=== PATIENT | male | born 1970 | race Caucasian/White ===

== ENCOUNTER 2016-07-18 17:56 | Inpatient (IN) | payer OTHER ==
[~2016-07-18] VITALS: Ht 190.5 cm; Wt 115.7 kg
[~2016-07-18 17:56] MED LIST: CYCLOBENZAPRINE10 M1 PO; PERCOCET 5-3251 EACH PO; PREDNISONE10 M2 PO
--- NOTE | 2016-07-18 18:15 | NUR ---
LABS DRAWN AND SENT BY THIS MST (BLUE,SST,LAV,LARSEN)
--- NOTE | 2016-07-18 18:18 | NUR ---
PT TO TRIAGE WITH C/O CHEST THIGHTNESS [id number] GETTING WORSE WITH EXERTION, MILD SOB WITH EXERTION, NIGHT SWEATS. BP 200/112 MANUALLY IN TRIAGE. HX OF LYMPHOMA.
[2016-07-18 18:19] LABS: ABSOLUTE BASOPHIL COUNT 0 /CUMM (0.0-0.2); ABSOLUTE EOSINOPHIL COUNT 0.2 /CUMM (0.0-0.7); ABSOLUTE GRANULOCYTE CT 3.1 /CUMM (1.4-6.5); ABSOLUTE LYMPH COUNT 1.3 /CUMM (1.2-3.4); ABSOLUTE MONOCYTE COUNT 0.4 /CUMM (0.10-0.60); BASOPHIL % 0.3 % (0.0-2.0); EOSINOPHIL % 3.2 % (0-5); GRANULOCYTE % 62.4 % (42.2-75.2); MEAN CORPUSCULAR HGB 29.4 PG (27.0-31.0); MEAN CORPUSCULAR HGB CONC 34.3 G/DL (33.0-37.0); MEAN CORPUSCULAR VOLUME 85.7 FL (80.0-94.0); MEAN PLATELET VOLUME 7.2 FL (7.4-10.4); PLATELET COUNT 158 /CUMM (130-400); RBC DISTRIBUTION WIDTH 13.9 % (11.5-14.5); RED BLOOD CELL CT 5.36 /CUMM (4.70-6.10)
[2016-07-18 18:30] LABS: PT 10.5 SEC (9.4-12.5); PTT 32 SEC (25-37)
--- NOTE | 2016-07-18 18:39 | ED CARDIAC/CP/PALPITATIONS ---
History of Present Illness General Chief Complaint: Chest Pain Stated Complaint: CP Source: patient Exam Limitations: no limitations Vital Signs & Intake/Output Vital Signs & Intake/Output Vital Signs Date Time Temp Pulse Resp B/P Pulse O2 O2 Flow FiO2 Ox Delivery Rate 07/180 98.6 74 16 164/94 100 Room Air 07/181 182/90 07/18 2136 89 172/94 07/18 2058 98.3 81 16 174/92 100 Room Air 07/18 1950 192/98 07/18 1915 99 Room Air 07/18 1909 94 202/129 07/18 181 98.0 82 18 200/120 97 Room Air Allergies Coded Allergies: NO KNOWN ALLERGIES (01/31/15) Reconcile Medications Diclofenac Sodium 75 MG TABLET.DR 1 TAB PO BID PAIN/INFLAMMATION (Reported) Naproxen Sodium (Aleve) 220 MG CAPSULE 2 CAP PO QAM PAIN/INFLAMMATION ( Reported) Triage Note: PT TO TRIAGE WITH C/O CHEST THIGHTNESS [id number] GETTING WORSE WITH EXERTION, MILD SOB WITH EXERTION, NIGHT SWEATS. BP 200/112 MANUALLY IN TRIAGE. HX OF LYMPHOMA. Triage Nurses Notes Reviewed? yes Onset: Gradual Duration: worse persistent since (3 weeks) Timing: no prior history Quality/Severity: moderate Location: left sided chest Radiation: no radiation Activities at Onset: none Prior Chest Pain/Card Workup: no prior cardiac workup Nitro Today/Relief: no nitro taken today HPI: Patient is a 46-year-old male with history of knee pain presenting to the emergency department with chief complaint of left-sided chest pain is constant for the past 2-3 weeks. Pain over the chest is worse with exertion. Denies any shortness of breath or palpitations. He reports that he went to a physical couple weeks ago and they told him that his blood pressure was high and he should follow-up with his primary care physician. He brushed it off. He has reports frontal headaches with intermittent blurred vision. Denies any nausea or vomiting. No back pain. Denies any lower extremity edema. 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 He does take Aleve daily for his aches and pains. Denies any urinary frequency or urgency or dysuria. (GUILLERMO GASTELUM) Past History Travel History Traveled to [place] past 21 day No Medical History Any Pertinent Medical History? see below for history Neurological: NONE EENT: NONE Cardiovascular: NONE Respiratory: NONE Gastrointestinal: NONE Hepatic: NONE Renal: NONE Musculoskeletal: NONE Psychiatric: NONE Endocrine: NONE Cancer(s): LYMPHOMA Surgical History Surgical History: N (thyroidectomy, knee surgery, c) Psychosocial History What is your primary language [place] Tobacco Use: Never used ETOH Use: occasional use Illicit Drug Use: denies illicit drug use Family History Hx Contributory? No (GUILLERMO GASTELUM) Review of Systems Review of Systems Constitutional: Reports: malaise. Comments Review of systems: See HPI, All other systems negative. Constitutional, no chills fever or weight loss HEENT: No visual changes no sore throat no congestion Cardiovascular: No palpitation , orthopnea or ankle swelling Skin, no jaundice no rashes Respiratory: No dyspnea cough sputum or hemoptysis GI: No nausea no vomiting : No dysuria No hematuria Muscle skeletal: no neck pain, Neurologic: No numbness no confusion Psych: No stress anxiety Immunology: No splenectomy or history of AIDS (GUILLERMO GASTELUM) Physical Exam Physical Exam General Appearance: well developed/nourished, no apparent distress, alert, awake , comfortable Cardiovascular: regular rate/rhythm Comments: Well-developed well-nourished person in no acute distress HEENT: Normal EENT exam, extraocular motion intact, no nystagmus. Pupils equally round and reactive to light and accommodation. Nose is atraumatic. External auditory canal and Tympanic membranes clear. Pharynx normal. No swelling or edema. Funduscopic: Somewhat limited secondary to no dilation prior to exam. No obvious retinal detachment, unclear if there is any venous nicking. Neck: Supple, no lymphadenopathy, normal range of motion without pain or tenderness Back: Nontender, no CVA tenderness. Full range of motion Cardiovascular: Regular rate and rhythms no murmurs rubs or gallops, normal JVP Respiratory: Chest nontender. No respiratory distress.breath sounds clear to auscultation bilaterally Abdomen: Soft, nontender nondistended, no appreciable organomegaly. Normal bowel sounds. No ascites, no rebound or guarding. Extremity: No edema, no calf tenderness to palpation, normal and equal pulses. Neuro: Alert oriented x3, motor sensory normal, cranial nerves II through XII grossly intact. Cerebellar testing is unremarkable. Skin: No appreciable rash on exposed skin, skin is warm and dry. Old surgical scar noted over the sternum, history of thymectomy. Psych: Mood and affect is normal, memory and judgment is normal. Core Measures ACS in differential dx? Yes Severe Sepsis Present: No Septic Shock Present: No ([place],GUILLERMO) Progress Differential Diagnosis: uncontrolled hypertension, renal artery stenosis, side effects from NSAIDs, ACS, unstable angina, stable angina, intracranial hemorrhage, migraine headache Plan of Care: Orders Procedure Date/time Status Nothing by Mouth 07/19 B Active Saline Lock 07/18 2207 Active Misc Message 07/18 2207 Active ED Holding Orders 07/18 2207 Active Admit to inpatient 07/18 2207 Active Vital Signs 07/18 2207 Active Code Status 07/18 2207 Active Patient Data 07/18 2118 Active Intake & Output 07/18 1915 Active URINALYSIS 07/18 1805 Complete TROPONIN LEVEL 07/18 1805 Complete PARTIAL THROMBOPLASTIN TIME 07/18 1805 Complete PROTHROMBIN TIME 07/18 1805 Complete COMPREHENSIVE METABOLIC PANEL 07/18 1805 Complete CBC WITHOUT DIFFERENTIAL 07/18 1805 Complete EKG 07/18 175 Active Laboratory Tests 07/18/162007: Urine Color YEL, Urine Clarity CLEAR, Urine pH 6.0, Ur Specific Sunbright >= 1.030 , Urine Protein NEG, Urine Ketones NEG, Urine Nitrite NEG, Urine Bilirubin NEG, Urine Urobilinogen 0.2, Ur Leukocyte Esterase NEG, Ur Microscopic EXAM NOT REQUIRED, Urine Hemoglobin NEG, Urine Glucose NEG 07/18/16 1813: Anion Gap 8, Estimated GFR > 60, BUN/Creatinine Ratio 16.7, Glucose 91, Calcium 8.8, Total Bilirubin 0.6, AST 32, ALT 51, Alkaline Phosphatase 91, Troponin I < 0.01, Total Protein 6.3, Albumin 3.7, Globulin 2.6, Albumin/Globulin Ratio 1.4, PT 10.5, INR 1.00, APTT 32, CBC w Diff NO MAN DIFF REQ, RBC 5.36, MCV 85.7, MCH 29.4, RDW 13.9, MPV 7.2 L, Gran % 62.4, Lymphocytes % 25.2, Monocytes % 8.9, Eosinophils % 3.2, Basophils % 0.3, Absolute Granulocytes 3.1, Absolute Lymphocytes 1.3, Absolute Monocytes 0.4, Absolute Eosinophils 0.2, Absolute Basophils 0, PUBS MCHC 34.3 Diagnostic Imaging: Viewed by Me: Radiology Read, CT Scan. Discussed w/RAD: Radiology Read, CT Scan. Radiology Impression: PATIENT: GERARDO THIBODEAUX PRESENT AGE: 46 PATIENT ACCOUNT NO: [id number] : 68 LOCATION: [facility] ORDERING PHYSICIAN: GUILLERMO HILL SERVICE DATE: 07/18/16 EXAM TYPE: RAD - XRY-CHEST XRAY, PA AND LATERAL EXAMINATION: XR CHEST CLINICAL INFORMATION: Chest pain COMPARISON: None TECHNIQUE: 2 views of the chest were obtained. FINDINGS: The x-rays taken with mild rotation toward the left side. The cardiomediastinal silhouette is normal. Median sternotomy wires in place. There is prominence of the right infrahilar bronchovascular markings, can be artifactual due to rotated position of patient on the PA view. The lungs are clear. No pleural effusions. No pneumothorax. IMPRESSION: No acute cardiopulmonary finding. DICTATED BY: ANNA ALFORD MD DATE/TIME DICTATED:10/27 Initial ED EKG: sinus rhythm, 81 beats further, borderline T abnormalities in the inferior leads Prior EKG: unchanged (no previous) Comments: 07/18/2016 7:23:36 PM patient is alert and oriented no focal deficits on exam. Pressure is considered hypertensive urgency. Patient will be medicated with IV labetalol 10 mg initially. Patient will be monitored on the monitor and storage bin tender, CT of the head secondary to headaches, chest x-ray develop cardiomegaly. We will wait for CT of the head before giving aspirin. 07/18/2016 8:25:14 PM patient informed of all laboratory results and imaging study results. Blood pressures trending downward. Patient resting comfortably. 07/18/2016 9:24:22 PM patient will be admitted for hypertensive urgency. Patient does have extensive history of NSAID use which could contribute to hypertension. Spoke with Dr. Morley, he would like to admit the patient to telemetry, we will continue to monitor blood pressure, serial troponins and EKGs. He would like another 10 of IV labetalol given, even with blood pressure trending down at 173/90. Patient feels that the sublingual nitroglycerin did help his pain, but he is still having some mild discomfort over the left chest. (GUILLERMO GASTELUM) Departure Departure Time of Disposition: 2115 Disposition: STILL A PATIENT Condition: Stable Clinical Impression Primary Impression: Hypertensive urgency Secondary Impressions: Chest pain Qualifiers: Chest pain type: unspecified Qualified Code: R07.9 - Chest pain, unspecified Referrals: Latesha PADILLA MD (PCP/Family) Departure Forms: Customer Survey General Discharge Information Admission Note Spoke With: BELLA KEENAN PhD,SISSY Guidry Documentation of Exam: Documentation of any treatments & extenuating circumstances including Concerns Regarding Discharge (functional status, medication knowledge or non-compliance, living conditions, etc.) that warrant an admission rather than observation: Patient requiring IV antihypertensive medication for hypertensive urgency, cardiology consultation, may require stress test, echocardiogram, serial EKGs and troponins, transitioned to by mouth antihypertensive medications, unsafe for discharge at this time due to likelihood of worsening symptoms unless controlled effectively by medications. (GUILLERMO GASTELUM) PA/TAX COMMISSIONER Co-Sign Statement Statement: ED Attending supervision documentation- [] I saw and evaluated the patient. I have also reviewed all the pertinent lab results and diagnostic results. I agree with the findings and the plan of care as documented in the PA's/TAX COMMISSIONER's documentation. [x] I have reviewed the ED Record and agree with the PA's/TAX COMMISSIONER's documentation. [] Additions or exceptions (if any) to the PAs/TAX COMMISSIONER's note and plan are summarized below: [] (MARKEL KEENAN,ISRRAEL Ayala) Critical Care Note Critical Care Note Critical Care Time: 30-74 min (GUILLERMO GASTELUM)
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
[2016-07-18] MEDS ORDERED: DICLOFENAC SODI75 M2 PO (19:27)
[2016-07-18] MEDS ORDERED: ALEVE220 M1 PO (19:28)
--- NOTE | 2016-07-18 19:34 | NUR ---
PT TO CT SCAN, WILL REASSESS BP WHEN PT RETURNS.
--- NOTE | 2016-07-18 19:57 | RADIOLOGY REPORT ---
EXAMINATION: XR CHEST CLINICAL INFORMATION: Chest pain COMPARISON: None TECHNIQUE: 2 views of the chest were obtained. FINDINGS: The x-rays taken with mild rotation toward the left side. The cardiomediastinal silhouette is normal. Median sternotomy wires in place. There is prominence of the right infrahilar bronchovascular markings, can be artifactual due to rotated position of patient on the PA view. The lungs are clear. No pleural effusions. No pneumothorax. IMPRESSION: No acute cardiopulmonary finding.
--- NOTE | 2016-07-18 20:10 | NUR ---
URINE TRIO COLLECTED AND SENT TO LAB
--- NOTE | 2016-07-18 20:11 | CT SCAN REPORT ---
EXAMINATION: CT HEAD WITHOUT CONTRAST CLINICAL INFORMATION: Headaches COMPARISON: None TECHNIQUE: Contiguous axial imaging was performed from the skull base to vertex without intravenous administration of contrast. DLP: 601 mGy-cm FINDINGS: There is no evidence of acute intracranial hemorrhage or territorial infarction. No abnormal mass effect or midline shift is seen. Mcgee to white matter differentiation is well preserved. No extra-axial fluid collections are identified. The ventricles are normal in size. There is no abnormal attenuation within the brain parenchyma. The osseous structures and soft tissues are normal. The mastoid air cells and visualized portions of the paranasal sinuses are well aerated. IMPRESSION: No acute intracranial pathology.
--- NOTE | 2016-07-18 20:59 | NUR ---
MANUAL BP RECHECKED, IMPROVED AFTER NITRO, SEE VITALS FLOW SHEET. PT REPORTING FEELING WELL, DENIES ANY NEEDS OR CONCERNS.
--- NOTE | 2016-07-18 21:21 | NUR ---
PT TO BE ADMITTED, PT AWARE AND AGREEABLE TO POC, ASKING FOR A FEW MOMENTS TO CALL HIS TO TALK TO HER ABOUT IT. WILL MEDICATE WITH LABETOLOL AFTER.
--- NOTE | 2016-07-18 22:37 | History & Physical ---
NATE KEENAN,[facility] 07/18/16 2236: General Information and HPI MD Statement: I have seen and personally examined GERARDO THIBODEAUX and documented this H&P. The patient is a 46 year old M who presented with a patient stated chief complaint of chest pain. Source of Information: patient Exam Limitations: no limitations History of Present Illness: This is a 46-year-old gentleman with medical history of lymphoma at age 28 who presented to the emergency department at [facility] after home blood pressure machine showed evidence of elevated blood pressures. On 07/18/2016 the patient checked his blood pressure with a home monitor and found that his pressures were elevated at 170/100 and 197/116. Following these elevations he came into the emergency department. The patient has also felt that over the last 4 weeks he has felt mild chest pain. Chest pain is rated a 2 out of 10 in severity. Chest pain is not associated with inspiration or physical activity. Patient does occasionally report that his chest pain sometimes worsens with movement. Patient has not taken any medications for this chest pain. Patient denies any fever, chills, nausea, vomiting. Allergies/Medications Allergies: Coded Allergies: NO KNOWN ALLERGIES (01/31/15) Compliance With Home Meds: GOOD Past History Travel History Traveled to [facility] past 21 day No Medical History Neurological: NONE EENT: NONE Cardiovascular: NONE Respiratory: NONE Gastrointestinal: NONE Hepatic: NONE Renal: NONE Musculoskeletal: NONE Psychiatric: NONE Endocrine: NONE Cancer(s): LYMPHOMA Surgical History Surgical History: N (thyroidectomy, knee surgery, c) Past Family/Social History Psychosocial History Where do you live? Home Who Do You Live With? spouse Services at Home: None Primary Language: Sinhala Smoking Status: Never Smoked ETOH Use: occasional use Illicit Drug Use: denies illicit drug use Functional Ability ADLs Independent: dressing, eating, toileting, bathing. Ambulation: independent IADLs Independent: shopping, housework, finances, food prep, telephone, transportation , medication admin. Review of Systems Review of Systems Constitutional: Reports: weakness. Denies: see HPI, chills, diaphoresis, fever. Cardiovascular: Reports: chest pain. Denies: edema, orthopena, palpitations, peripheral edema. Respiratory: Denies: cough, hemoptysis, orthopnea, short of breath. GI: Denies: abdominal pain, bloating, constipation, diarrhea, distention, bowel incontinence. Genitourinary: Denies: discharge, dysuria, frequency, hematuria. Musculoskeletal: Denies: back pain, gout, joint pain, joint swelling. Skin: Denies: cysts, change in hair/nails, erythema, jaundice. Exam & Diagnostic Data Last 24 Hrs of Vital Signs/I&O Vital Signs Date Time Temp Pulse Resp B/P Pulse O2 O2 Flow FiO2 Ox Delivery Rate 07/180 98.6 74 16 164/94 100 Room Air 07/181 182/90 07/18 2136 89 172/94 07/18 2058 98.3 81 16 174/92 100 Room Air 07/18 1950 192/98 07/18 191 99 Room Air 07/18 191 94 202/129 07/18 1813 98.0 82 18 200/120 97 Room Air Intake & Output 07/19 0800 07/19 0000 07/18 1600 Intake Total 50 Output Total Balance 50 Intake, Oral 50 Patient 115.666 kg Weight Physical Exam General Appearance Alert, Oriented X3, Cooperative Lymphatic Cervical nl Cardiovascular Normal S1, Normal S2, No Murmurs, Surgical Scar, Anteior Chest Lungs Clear to Auscultation Abdomen Normal Bowel Sounds, Soft, No Tenderness Neurological Normal Gait, Normal Speech, Strength at 5/5 X4 Ext Extremities No Clubbing, No Cyanosis, No Edema Last 24 Hrs of Labs/Darrell: Laboratory Tests 07/18/162007: Urine Color YEL, Urine Clarity CLEAR, Urine pH 6.0, Ur Specific [place] >= 1.030 , Urine Protein NEG, Urine Ketones NEG, Urine Nitrite NEG, Urine Bilirubin NEG, Urine Urobilinogen 0.2, Ur Leukocyte Esterase NEG, Ur Microscopic EXAM NOT REQUIRED, Urine Hemoglobin NEG, Urine Glucose NEG 07/18/161812: Anion Gap 8, Estimated GFR > 60, BUN/Creatinine Ratio 16.7, Glucose 91, Calcium 8.8, Total Bilirubin 0.6, AST 32, ALT 51, Alkaline Phosphatase 91, Troponin I < 0.01, Total Protein 6.3, Albumin 3.7, Globulin 2.6, Albumin/Globulin Ratio 1.4, PT 10.5, INR 1.00, APTT 32, CBC w Diff NO MAN DIFF REQ, RBC 5.36, MCV 85.7, MCH 29.4, RDW 13.9, MPV 7.2 L, Gran % 62.4, Lymphocytes % 25.2, Monocytes % 8.9, Eosinophils % 3.2, Basophils % 0.3, Absolute Granulocytes 3.1, Absolute Lymphocytes 1.3, Absolute Monocytes 0.4, Absolute Eosinophils 0.2, Absolute Basophils 0, PUBS MCHC 34.3 Assessment/Plan Assessment: This is a 46-year-old gentleman with limited past medical history who presented to the emergency department with worsening hypertension and chest pain. Hypertension likely caused by multifactorial including lifestyle and/or OTC medications. #Hypertensive urgency. No evidence of any end organ damage. Continue to monitor patient's pressures and ensure that rapid correction does not occur. Target blood pressure of 150/90 systolic. Admit to telemetry for close observation Consider starting patient on by mouth labetalol 100 mg by mouth daily Consider renal ultrasound to assess the renal parenchyma Measure plasma renin and aldosterone ratio, Renal Dopplex ultrasound : To assess for renal artery stenosis Free T4, TSH #Chest Pain Patient's chest pain is very atypical, likely related to hypertension. This patient has limited risk factors for coronary artery disease. Check lipid profile Hemoglobin A1c Started patient on aspirin 81 mg by mouth daily NTG 0.4 mg SL TID/Patch as needed for chest pain if Blood pressure tolerated Obtain transthoracic echo #History of lymphoma CTA findings show evidence of questionable malignancy. Patient will need follow-up as an outpatient. May need inpatient referral with oncology. #DVT prophylaxis Heparin 5000 #Code Full code As Ranked By This Provider Problem List: 1. Chest pain Qualifiers Chest pain type: unspecified Qualified Code: R07.9 - Chest pain, unspecified 2. Hypertensive urgency Core Measures/Miscellaneous Acute Coronary Syndrome ACS Diagnosis: No Cerebrovascular Accident CVA/TIA Diagnosis: No Congestive Heart Failure CHF Diagnosis: No Venous Thromboembolism VTE Risk Factors: Age > 40 VTE Prophylaxis Ordered Inpt: Pharm- [facility] prophylaxis d/t: No contraindications No VTE Pharm Prophylaxis d/t: No contraindications VTE Diagnosis: No VTE Type: NONE VTE Confirmed by (Test): NONE Severe Sepsis Severe Sepsis Present: No Septic Shock Septic Shock Present: No Miscellaneous Documentation Attending Case Discussed With: BELLA KEENAN PhD,SISSY Guidry Primary Care Physician: Latesha PADILLA MD Patient sees these Specialists NA Level of Patient Care: Telemetry CASTILLO RASHEED 07/19/16 0424: General Information and HPI Allergies/Medications Home Med list Aspirin (Aspirin*) 81 MG TAB.CHEW 81 MG PO DAILY [facility] Labetalol HCl 200 MG TABLET 200 MG PO BID BP Resident Review Statement Resident Statement: examined this patient, discussed with direct marketing intern, agreed with direct marketing intern, discussed with family, reviewed EMR data (avail), discussed with nursing , discussed with case mgmt, reviewed images, amended to note Other Findings: 46-year-old nonsmoker man presented in the emergency room complaining of elevated blood pressure and left-sided chest pain. 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 About 4 weeks ago, for the first time, he discovered that he has elevated blood pressure during annual physical exam, which she decided not to follow-up and get treatment for. A week after patient developed constant, 2 or 3 out of 10 on pain scale pressure-type, non-pleuritic, no positional. Patient reports to some extent exaggeration of his chest pain with fast-paced physical activity. He denies any associated palpitation, lightheadedness, feeling clammy , nausea or vomiting, dyspnea, however he mentions that for the past months he has been spearing sitting frequent frontal pressure type headaches. Pain is not associated with breathing/deep inspiration, or eating, cold exposure, stress and emotional triggers. 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 Today he had one episode of headache which was not responding to Tylenol. He checked his blood pressure at home and this was slightly elevated about 170s over 100 and repeat measurement showed blood pressure of 197/116. The patient decided to come to the emergency room. In the emergency room, initially, blood pressure was 200/120 and subsequently 202/129. Labetalol and active was given which decreased her blood pressure and relieve the chest pain .Social history: Lifetime nonsmoker denies EtOH and illicit drugs; family history noncontributory ; review of system: Constant left-sided pressure type chest pain. Physical exam : Cardiovascular S1-S2 no murmur, lungs are clear the remainder of the physical exam was unremarkable. EKG normal sinus rate and rhythm normal axis rate of 74, no evidence of LVH no prolongation of DC and QT. pertinent data Chest CTA Bulky adenopathy within the bilateral axilla, visualized lower neck extending into the mediastinum. With this distribution lymphoma or leukemia would be suspected. The distribution pattern and size would be atypical for infectious etiology This could be clinically correlated. CXR and Head CT: wnl, no acute pathology Troponin less than 0.01 Assessment and plan 46-year-old otherwise healthy man with insignificant past medical history was admitted for atypical chest pain and hypertension emergency. #1 hypertension urgency: Elevated blood pressure of more than 180mmhg systolic and 120mmhg diastolic without evidence of end organ damage. The causes of hypertension emergency could be uncontrolled and untreated essential hypertension versus renovascular causes such as renal artery stenosis endocrine causes such as pheochromocytoma and thyroid disease and sympathomimetic medications and drugs such as cocaine. Obstructive sleep apnea which can cause elevated blood pressure. * Admit to telemetry for close observation * Decrease mean arterial blood pressure 25% ( 200/120 ) over 2 hours with IV agents * Targets blood pressure below <160/100mmhg start using; using labetalol IV 10 mg push * stert labetalol 50 mg by mouth BID * Consider starting patient on by mouth labetalol 100 mg by mouth daily * Obtain renal ultrasound to assess the renal parenchyma * Renal Dopplex ultrasound : To assess for renal artery stenosis * Measure plasma renin and aldosterone ratio * Thyroid panel #2 atypical chest pain: Has a history of uncontrolled blood pressure and presented with hypertensive urgency. Cause of chest pain could be related to high blood pressure. Patient does not have any risk factor for cardiac diseases. Seemingly no obesity hypoventilation, questionable dyslipidemia not on anti-lipids nonsmoker no family history of heart disease. Ever his chest pain worsens with exercise and responded to nitrates. EKG remained unchanged, and troponins were negative. Other causes of chest pain including pulmonary embolism aortic aneurysm was also considered. CTA was ordered which out pulmonary embolism and aortic aneurysm. * Check lipid profile * Hemoglobin A1c * Admit to telemetry for continuous monitoring * Started patient on aspirin 81 mg by mouth daily * NTG 0.4 mg SL TID as needed for chest pain if Blood pressure tolerated * Follow Dr. Morley's recommendation in the a.m.-he was notified by ED physician; In the am case was discussed with Dr. Joshua KEENAN * Obtain transthoracic echo * Treadmill stress test for atypical chest pain- to be decided by tax representative Patient is a full code Heparin 5000 units subcutaneous every 8 hours Mild to moderate pain pathway The CT scan was not done on Mr. Rotatori. The indication of an abnormal finding in chest CT scan was an personal miatake.
--- NOTE | 2016-07-18 23:11 | NUR ---
PT REPORTING CHEST PAIN IMPROVED PREVIOUSLY WITH NITRO BUT HAS SINCE INCREASED FROM A "1.5 TO A 2" WILL NOTIFY PA.
--- NOTE | 2016-07-18 23:55 | NUR ---
PT MOVED TO ER 10. PLACED IN HOSPITAL BED. NO COMPLAINTS
--- NOTE | 2016-07-19 03:36 | NUR ---
HOUSE STAFF IN TO EVAL PT
--- NOTE | 2016-07-19 06:25 | NUR ---
BLOODS DRAWN AT 0600. PT MEDICATED WITH HEPARIN SC ORDERED. MANUAL BP 158/98, NO NEW ORDERS PER DR ARCOS, WILL CONTINUE TO MONITOR
--- NOTE | 2016-07-19 06:46 | NUR ---
IPOC DONE AND UP TO DATE
--- NOTE | 2016-07-19 07:08 | PN- Housestaff ---
Subjective Follow-up For: 1. Elevated BP 2. Chest pain Complaints: no complaints Subjective: Patient seen and examined at bedside, resting comfortably in his hospital bed. Offers no complaints. Review of Systems Constitutional: Reports: see HPI. Objective Last 24 Hrs of Vital Signs/I&O Vital Signs Date Time Temp Pulse Resp B/P Pulse O2 O2 Flow FiO2 Ox Delivery Rate 07/19 612 96.8 77 16 158/98 100 Room Air 07/18 2310 98.6 74 16 164/94 100 Room Air 07/18 2151 182/90 07/18 2136 89 172/94 07/18 2058 98.3 81 16 174/92 100 Room Air 07/18 1950 192/98 07/18 191 99 Room Air 07/18 191 94 202/129 07/18 1813 98.0 82 18 200/120 97 Room Air Intake & Output 07/19 0800 07/19 0000 07/18 1600 Intake Total 50 Output Total Balance 50 Intake, Oral 50 Patient 255 lb 255 lb Weight Physical Exam General Appearance: Alert, Oriented X3, Cooperative HEENT: Atraumatic, PERRLA, EOMI Cardiovascular: Regular Rate, Normal S1, Normal S2 Lungs: Clear to Auscultation, Normal Air Movement Abdomen: Normal Bowel Sounds, Soft, No Tenderness Neurological: Normal Speech, Strength at 5/5 X4 Ext, Normal Tone, Sensation Intact Assessment/Plan Assessment: Assessment- 1. Hypertensive urgency 2. Chest pain, likely secondary to elevated blood pressure Plan- Goal blood pressure 150 systolic Will rule out renal artery stenosis Trend troponin and EKG Echocardiogram Low-salt diet We'll try and transition him to by mouth antihypertensives Problem List: 1. Chest pain 2. Hypertensive urgency Pain Ratin Pain Location: none Pain Goal: Remain pain free Pain Plan: per emr Tomorrow's Labs & Rationales: none
--- NOTE | 2016-07-19 07:24 | NUR ---
ASSUMED CARE OF PT AT THIS TIME, PT RESTING ON STRETCHER. STATES HIS PAIN IS 2/10 IN L SIDE OF CHEST AT HTIS TIME. NSR ON MONITOR. SKIN WARM/DRY. DENIES SOB. WILL CTM
--- NOTE | 2016-07-19 07:45 | NUR ---
CALL ALONZO EXT [phone].. WHEN DOCTOR COME TO SPEAK WITH PT
--- NOTE | 2016-07-19 08:02 | NUR ---
RESIDENT CASTILLO RASHEED CALLED TO STATE AT THIS TIME PT WILL BE NPO FOR 6-8 HOURS PEDNING RENAL ULTRASOUND. PER RESIDENT PT CAN DRINK WATER BUT NO FOOD. PT AWARE
--- NOTE | 2016-07-19 08:27 | NUR ---
ULTRASOUND AWARE PT ATE BREAKFAST TRAY AT 0730 PRIOR TO NPO ORDER. WILL GET PT ONCE PT HAS BEEN NPO FOR 6-8 HOURS.
[2016-07-19 10:12] VITALS: BP 165/99
[2016-07-19 11:45] VITALS: BP 127/80
--- NOTE | 2016-07-19 11:46 | NUR ---
PT REMAISN RESTING ON STRETCHER, BP 127/80 AT THIS TIME. AWARE HE IS WAITING FOR ULTRASOUND BUT CANNOT GO UNTIL HE HAS BEEN NPO FOR 6-8 HOURS. REPEAT EKG AND TROPONIN IN PROGRESS AT THIS TIME. REMAINS NSR ON MONITOR.
--- NOTE | 2016-07-19 13:24 | NUR ---
PT TO ULTRASOUND VIA WHEELCHAIR AT THIS TIME.
--- NOTE | 2016-07-19 13:50 | NUR ---
pt admitted to room 187-1
--- NOTE | 2016-07-19 14:21 | NUR ---
REPORT GIVEN TO FLOOR, DISTRIBUTION CALLED FOR TRANSPORT
[2016-07-19 14:57] VITALS: BP 162/110
--- NOTE | 2016-07-19 15:01 | ULTRASOUND REPORT ---
EXAMINATION: ULTRASOUND RENAL WITH DOPPLER CLINICAL INFORMATION: Hypertensive urgency. Chest pain for 4 weeks. Evaluate for renal artery stenosis. COMPARISON: None. TECHNIQUE: Real-time grayscale, color Doppler, and duplex Doppler evaluation of the kidneys and renal vasculature was performed. FINDINGS: RENAL MEASUREMENTS: Right: 10.0 x 5.2 x 5.2 cm (Sag x AP x TV) Left: 12.9 x 6.4 x 5.7 cm (Sag x AP x TV) The renal parenchyma appears normal. No hydronephrosis or nephrolithiasis. 1.9 cm lower pole cyst of the right kidney. The bladder is well-distended and grossly unremarkable. Bilateral ureteral jets are visualized. The prostate gland is enlarged measuring approximately 5 cm in transverse dimension. DOPPLER INTERROGATION: Aorta: 105 cm/sec Right Main Renal Artery: Proximal: 124 cm/sec Mid: 104 cm/sec Distal: 79 cm/sec Left Main Renal Artery: Proximal: 54 cm/sec Mid: 53 cm/sec Distal: 79 cm/sec Renal-Aortic Ratio (RAR): Right: 1.2 Left: 0.8 IMPRESSION: No sonographic evidence to suggest hemodynamically significant renal artery stenosis.
--- NOTE | 2016-07-19 18:04 | Cons- Cardiology ---
General Information and HPI Consulting Request Date of Consult: 07/19/16 Requested By: BELLA KEENAN PhD,SISSY Guidry History of Present Illness: Deandre is a 46 year old male with history of hypertension and lymphoma. Over the past month this patient has noted chest discomfort and he has chronic headaches. He does take Aleve ( NaproxenSodium) an a daily basis for his headaches. In addition to this chest discomfort he has noted drenching sweats at night. This constellation of symptoms prompted him to come to the ER for further evaluation where he was discovered to be severely hypertensive. The patient's chest discomfort is a mild left sided pressure without any definite exertional component to it. It is not exacerbated by deep inhalation or eating. He has also noted exertional shortness of breath and over the past two weeks he has also had rapid intermittent palpitations. Allergies/Medications Allergies: Coded Allergies: NO KNOWN ALLERGIES (01/31/15) Home Med List: Diclofenac Sodium 75 MG TABLET.DR 1 TAB PO BID PAIN/INFLAMMATION (Reported) Naproxen Sodium (Aleve) 220 MG CAPSULE 2 CAP PO QAM PAIN/INFLAMMATION ( Reported) Review of Systems Review of Systems: night sweats, achiness in his right hip and knee, headaches Past History Travel History Traveled to [place] past 21 day No Medical History Neurological: headaches EENT: NONE Cardiovascular: hypertension, hyperlipidemia Respiratory: NONE Gastrointestinal: NONE Hepatic: NONE Renal: NONE Musculoskeletal: NONE Psychiatric: NONE Endocrine: NONE Cancer(s): LYMPHOMA s/p thymectomy Surgical History Surgical History: none (left knee surgery, thymectomy) Family History Family History Reviewed? Father: CAD in early 60's Psychosocial History Where Do You Live? Home Who Do You Live With? spouse Services at Home: None Primary Language: Haitian Smoking Status: Never Smoked ETOH Use: occasional use Illicit Drug Use: denies illicit drug use Exam & Diagnostic Data Vital Signs and I&O Vital Signs Date Time Temp Pulse Resp B/P Pulse O2 O2 Flow FiO2 Ox Delivery Rate 07/19 1457 97.8 92 18 162/110 97 Room Air 07/19 1145 76 18 127/80 98 Room Air 07/19 1144 76 18 127/80 98 Room Air 07/19 1012 97.4 77 18 165/99 97 Room Air 07/19 0958 97.4 77 18 165/99 02 0954 97.4 77 18 165/99 97 Room Air 07/19 0613 96.8 77 16 158/98 100 Room Air 07/18 2310 98.6 74 16 164/94 100 Room Air 07/18 2151 182/90 07/18 2136 89 172/94 07/18 2058 98.3 81 16 174/92 100 Room Air 07/18 1950 192/98 07/18 1916 99 Room Air 07/18 1910 94 202/129 07/18 1813 98.0 82 18 200/120 97 Room Air Intake & Output 07/19 0807/19 0000 07/18 1600 07/18 0807/18 0000 Intake Total 50 50 Output Total Balance 50 50 Intake, Oral 50 50 Patient 255 lb 255 lb Weight Physical Exam: General: WD/ WN male in NAD; alert and oriented x 3 HEENT: NC/AT, PERRL, EOMI, clear oropharynx Neck: no JVD, no carotid bruit, no enlarged lymph nodes Heart: RRR with 2/6 diastolic murmur at the RUSB Lungs: clear bilaterally ABdomen: soft, NT, +ve bowel sounds Extremties: no edema Diagnostic Data EKG Results normal sinus rhythm Assessment/Plan Assessment/Plan * Hypertension: This patient has severe hypertension. We will begin labetolol 200mg po BID. Stop Amlodipine. The patient's hypertension is likely exacerbated by daily use of Naproxen-Sodium which should be avoided. This patient should be on a low sodium diet. We will also obtain an echocardiogram to evaluate his LV size, thickness and function. * Chest pain: This patient has atypical chest discomfort and did rule out for an MO. I strongly suspect that his symptoms are related to subendocardial ischemia in the setting or severe hypertension. This should improve with Labetolol. I do think it is reasonable to risk stratify this patient with a treadmill nuclear stress test when he is more stable and demonstrates a well controlled BP. We will do this as an outpatient. He should be on aspirin 81mg daily. A fish oil supplement is recommended for high triglycerides along with a low fat/ low cholesterol and low carbohydrate diet. * This patient has some symptoms that are suggestive of lymphoma such as his night sweats. We will consult Dr. Ponce. Consult Acknowledgment - Thank you for your consult request.
[2016-07-20 00:38] VITALS: BP 120/60
--- NOTE | 2016-07-20 06:43 | PN- Housestaff ---
Subjective Follow-up For: Hypertensive Chest pain Complaints: no complaints Tele-Events Since Last Visit: No tele events Subjective: Pt seen and examined this morning, offers no complaints. States he is CP free and slept well over night. Review of Systems Constitutional: Reports: see HPI. Objective Last 24 Hrs of Vital Signs/I&O Vital Signs Date Time Temp Pulse Resp B/P Pulse O2 O2 Flow FiO2 Ox Delivery Rate 07/20 0038 97.7 87 20 120/60 98 Room Air 07/19 2144 85 140/84 07/19 1810 164/80 02/ 1457 97.8 92 18 162/110 97 Room Air 07/19 1145 76 18 127/80 98 Room Air 02 1144 76 18 127/80 98 Room Air 07/19 1012 97.4 77 18 165/99 97 Room Air 07/19 0958 97.4 77 18 165/99 02/ 0954 97.4 77 18 165/99 97 Room Air Intake & Output 07/20 0800 07/20 0000 07/19 1600 Intake Total 130 490 50 Output Total Balance 130 490 50 Intake, IV 10 10 Intake, Oral 120 480 50 Physical Exam General Appearance: Alert, Oriented X3, Cooperative Skin: No Rashes, No Breakdown HEENT: Atraumatic, PERRLA, EOMI Cardiovascular: Regular Rate, Normal S1, Normal S2 Lungs: Clear to Auscultation, Normal Air Movement Abdomen: Normal Bowel Sounds, Soft, No Tenderness Neurological: Normal Speech, Strength at 5/5 X4 Ext Current Medications: Current Medications Sig/Morales Start time Last Medication Dose Route Stop Time Status Admin Acetaminophen 650 MG Q4P PRN 07/19 0815 AC PO Acetaminophen 650 MG Q6P PRN 07/19 0500 AC PO Amlodipine Besylate 5 MG DAILY 07/19 1542 DC PO Aspirin 81 MG DAILY 07/19 1000 AC 07/19 PO 0958 Aspirin 0 .STK-MED ONE 07/19 0949 DC PO Heparin Sodium 0 .STK-MED ONE 07/19 1409 DC (Porcine) .ROUTE Heparin Sodium 5,000 UNIT Q8 07/19 0600 AC 07/19 (Porcine) SC 1410 Labetalol HCl 200 MG BID 07/19 2200 AC 07/19 PO 2144 Labetalol HCl 50 MG BID 07/19 1000 DC 07/19 PO 0958 Morphine Sulfate 1 MG Q6PRN PRN 07/19 0500 AC IV Nitroglycerin 0.4 MG Q8P PRN 07/19 0815 AC SL Oxycodone HCl 5 MG Q6P PRN 07/19 0815 AC PO Patient Medication 1 UNIT ONE NR 07/19 0830 DC Teaching ED 07/19 1430 Patient Medication 1 UNIT ONE NR 07/19 0830 DC Teaching ED 07/19 1430 Potassium Chloride 0 .STK-MED ONE 07/19 0950 DC PO Potassium Chloride 0 .STK-MED ONE 07/19 0949 DC PO Potassium Chloride 40 MEQ ONCE ONE 07/19 0930 DC 07/19 PO 07/19 0931 0958 Last 24 Hrs of Lab/Darrell Results Last 24 Hrs of Labs/Mics: Laboratory Tests 07/19/16 1142: Troponin I < 0.01 07/19/16 0900: Triglycerides Cancelled, Cholesterol Cancelled, LDL Cholesterol, Calc Cancelled, HDL Cholesterol Cancelled, Cholesterol/HDL Ratio Cancelled 07/19/16 0854: Renin Pending 07/19/16 0854: Hemoglobin A1c 5.3 07/19/16 0854: Aldosterone Pending 07/19/16 0758: Free T4 Cancelled Orders Radiology Findings: renal u/s and doppler- IMPRESSION: No sonographic evidence to suggest hemodynamically significant renal artery stenosis. Assessment/Plan Assessment: Assessment- 1. Hypertensive urgency 2. Chest pain, likely secondary to elevated blood pressure 3. Hx of Lymphoma Plan- CP alleviated Goal blood pressure < 130 systolic U/s renal doppler negative 3 sets of Trop and EKG negative Echocardiogram pending Low-salt diet On po labetolol 200 BID, BP overnight has been stable Appreciate heme/ onc recommendations, his last heme/onc eval was over [address] Lund at [facility] Problem List: 1. Chest pain 2. Hypertensive urgency Pain Ratin Pain Location: none Pain Goal: Remain pain free Pain Plan: per emr Tomorrow's Labs & Rationales: per emr
--- NOTE | 2016-07-20 07:34 | Patient Discharge Instructions ---
Discharge Instructions General Discharge Information You were seen/treated for: HIGH BLOOD PRESSURE Special Instructions: F/U WITH YOUR PCP WITHIN 1 WEEK OF D/C F/U WITH DR. BLANCO WITHIN 1 WEEK OF D/C Diet Continue normal diet: Yes Recommended Diet: Heart Healthy, Regular no added salt Activity Full Activity/No Limits: Yes Acute Coronary Syndrome Inclusion Criteria At DC or during hospital stay patient has or had the following: ACS DIAGNOSIS No Discharge Core Measures Meds if any: Prescribed or Continued at Discharge Meds if any: NOT Prescribed or Continued at Discharge Congestive Heart Failure Inclusion Criteria At DC or during hospital stay patient has or had the following: CHF DIAGNOSIS No Discharge Core Measures Meds if any: Prescribed or Continued at Discharge Meds if any: NOT Prescribed or Continued at Discharge Cerebrovascular accident Inclusion Criteria At DC or during hospital stay patient has or had the following: CVA/TIA Diagnosis No Discharge Core Measures Meds if any: Prescribed or Continued at Discharge Meds if any: NOT Prescribed or Continued at Discharge Venous thromboembolism Inclusion Criteria VTE Diagnosis No VTE Type NONE VTE Confirmed by (Test) NONE Discharge Core Measures - Per Current guidelines, there needs to be overlap - treatment for the first 5 days of Warfarin therapy. - If discharged on Warfarin prior to 5 days of - overlap therapy, the patient will need to be - assessed for post discharge needs including - *Post discharge parental anticoagulation - *Warfarin and/or parental anticoagulation education - *Follow up date to check INR post discharge At least 5 days overlap therapy as Inpatient No Meds if any: Prescribed or Continued at Discharge Note: Overlap Therapy is Warfarin and Anticoagulant Meds if any: NOT Prescribed or Continued at Discharge
[2016-07-20] MEDS ORDERED: ASPIRIN81 M4 PO (07:35)
[2016-07-20] MEDS ORDERED: LABETALOL HCL200 M1 PO (07:35)
--- NOTE | 2016-07-20 07:35 | Discharge Summary ---
Visit Information Visit Dates Admission Date: 07/18/16 Discharge Date: 07/20/16 Hospital Course Course Attending Physician: BELLA KEENAN PhD,SISSY Guidry Primary Care Physician: Latesha PADILLA MD Hospital Course: 46-year-old gentleman with a past medical history significant for lymphoma greater than 20 years ago presented to the emergency room after home blood pressure monitoring evidenced high blood pressures. He also had some associated chest pain prior to admission of 2-3 weeks of duration. In the emergency room he was found to have elevated blood pressures to 190 systolic but subsequently did respond to IV labetalol. He was admitted to the cardiac telemetry floor and treated for the following conditions. 1. Chest pain- started today secondary to elevated blood pressure and myocardial demand. Patient was admitted to the cardiac telemetry floor, serial troponin EKGs were negative, echocardiogram was obtained, cardiology evaluation by Dr. Bella daniels. Patient was converted from IV to by mouth labetalol 200 twice a day with adequate maintenance of his blood pressure and alleviation of his chest pain. 2. Hypertensive urgency- on admission his blood pressure was 190 systolic in the emergency room, subsequently IV labetalol was given with modest response in BP, as above he was d/c on PO labetolol with good management of his bp. 3. Hx of Lymphoma- Has been in remission for over 15 yrs, heme/ onc consult obtained so that the pt can follow up. He had not seen an Oncologist in 10 yrs. He will f/u with Dr. Styles as an OP. Allergies: Coded Allergies: NO KNOWN ALLERGIES (01/31/15) Disposition Summary Disposition Principal Diagnosis: 1. Hypertensive urgency Additional Diagnosis: 1. Hx of lymphoma Discharge Disposition: home or self care Discharge Instructions General Discharge Information Code Status: Full Code Patient's Diet: heart healthy, low salt Patient's Activity: as tolerated Follow-Up Instructions/Appts: f/u with your PCP and Dr. Morley within 1 week of d/c Medications at Discharge Discharge Medications: Stop taking the following medications: Diclofenac Sodium (Diclofenac Sodium) 75 MG TABLET.DR ORAL TWICE DAILY Qty = 60 Naproxen Sodium (Aleve) 220 MG CAPSULE ORAL Every Morning Start taking the following new medications: Labetalol HCl (Labetalol HCl) 200 MG TABLET 200 Milligram ORAL TWICE DAILY Days = 60 No Refills Aspirin (Aspirin*) 81 MG TAB.CHEW 81 Milligram ORAL DAILY Days = 90 No Refills Copies To: Latesha PADILLA MD
[2016-07-20 08:00] VITALS: BP 146/96
[2016-07-20 09:05] VITALS: BP 146/96
--- NOTE | 2016-07-20 12:12 | Cons- Hematology ---
General Information and HPI Consulting Request Date of Consult: 07/20/16 Requested By: BELLA KEENAN PhD,SISSY Guidry Reason for Consult: Night sweats Source of Information: patient Exam Limitations: no limitations History of Present Illness: Mr. 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 He noted chest pressure over the last 4 weeks and blood pressure in 170-190/100s. He reports some night sweats which has been going off and on around the same time. He has not loss any weight. He has no new pain besides his right hip and knee pain. He takes NSAIDs (Aleve) for the pain. He is still very active. He has no fever or chills currently. He has been started on labetolol. Due to concerns for the night sweats, hematology was consulted for evaluation. Allergies/Medications Allergies: Coded Allergies: NO KNOWN ALLERGIES (01/31/15) Home Med List: Aspirin (Aspirin*) 81 MG TAB.CHEW 81 MG PO DAILY HEART HEALTH Diclofenac Sodium 75 MG TABLET.DR 1 TAB PO BID PAIN/INFLAMMATION (Reported) Labetalol HCl 200 MG TABLET 200 MG PO BID BP Naproxen Sodium (Aleve) 220 MG CAPSULE 2 CAP PO QAM PAIN/INFLAMMATION ( Reported) Current Medications: Current Medications Sig/Morales Start time Last Medication Dose Route Stop Time Status Admin Acetaminophen 650 MG Q4P PRN 07/19 0815 AC PO Acetaminophen 650 MG Q6P PRN 07/19 0500 AC PO Amlodipine Besylate 5 MG DAILY 07/19 1542 DC PO Aspirin 81 MG DAILY 07/19 1000 AC 07/20 PO 0905 Heparin Sodium 0 .STK-MED ONE 07/19 1409 DC (Porcine) .ROUTE Heparin Sodium 5,000 UNIT Q8 07/19 0600 AC 07/19 (Porcine) SC 1410 Labetalol HCl 200 MG BID 07/19 2200 AC 07/20 PO 0905 Labetalol HCl 50 MG BID 07/19 1000 DC 07/19 PO 0958 Morphine Sulfate 1 MG Q6PRN PRN 07/19 0500 AC IV Nitroglycerin 0.4 MG Q8P PRN 07/19 0815 AC SL Oxycodone HCl 5 MG Q6P PRN 07/19 0815 AC PO Patient Medication 1 UNIT ONE NR 02/06 0830 DC Teaching ED 07/19 1430 Patient Medication 1 UNIT ONE NR 07/19 0730 [facility] ED 07/19 1430 Review of Systems Review of Systems Constitutional: Reports: see HPI. Denies: chills, diaphoresis, fever, malaise, weakness, unexplained weight loss. EENTM: Denies: visual changes. Cardiovascular: Reports: chest pain. Denies: edema, orthopena, palpitations, peripheral edema, syncope. Respiratory: Denies: orthopnea, short of breath. GI: Denies: abdominal pain, constipation, diarrhea, melena, nausea, vomiting. Genitourinary: Denies: dysuria, hematuria. Musculoskeletal: Reports: joint pain. Skin: Reports: dryness. Denies: change in skin color, erythema, jaundice, rash. Neurological/Psychological: Reports: headache. Denies: anxiety, ataxia, confusion. Hematologic/Endocrine: Denies: bruising, bleeding. Immunologic/Allergic: Denies: lymphadenopathy. All Other Systems: Reviewed and Negative Past History Travel History Traveled to [facility] past 21 day No Medical History Neurological: headaches EENT: NONE Cardiovascular: hypertension, hyperlipidemia Respiratory: NONE Gastrointestinal: NONE Hepatic: NONE Renal: NONE Musculoskeletal: NONE Psychiatric: NONE Endocrine: NONE Cancer(s): LYMPHOMA s/p thymectomy Surgical History Surgical History: none (left knee surgery, thymectomy) Psychosocial History Where Do You Live? Home Who Do You Live With? spouse Services at Home: None Primary Language: Setswana Smoking Status: Never Smoked ETOH Use: occasional use Illicit Drug Use: denies illicit drug use Functional Ability ADLs Independent: dressing, eating, toileting, bathing. Ambulation: independent IADLs Independent: shopping, housework, finances, food prep, telephone, transportation , medication admin. Exam & Diagnostic Data Vital Signs and I&O Vital Signs Date Time Temp Pulse Resp B/P Pulse O2 O2 Flow FiO2 Ox Delivery Rate 07/20 0905 71 146/96 07/20 0800 97.7 71 18 146/96 95 Room Air 07/20 0038 97.7 87 20 120/60 98 Room Air 07/19 2144 85 140/84 07/19 1810 164/80 07/19 1457 97.8 92 18 162/110 97 Room Air Intake & Output 07/20 1600 07/20 0800 07/20 0000 Intake Total 130 490 Output Total Balance 130 490 Intake, IV 10 10 Intake, Oral 120 480 Physical Exam General Appearance: well developed/nourished, no apparent distress, alert, awake , comfortable Head: atraumatic, normal appearance Eyes: Bilateral: PERRL, EOMI. Ears, Nose, Throat: normal pharynx, normal ENT inspection Neck: normal inspection Respiratory: normal breath sounds, chest non-tender, no respiratory distress, lungs clear Cardiovascular: regular rate/rhythm Gastrointestinal: normal bowel sounds, soft, non-tender, no organomegaly Back: normal inspection Extremities: normal inspection Neurologic/Psych: awake, alert, oriented x 3, normal gait, normal mood/affect Cranial Nerves: normal hearing, normal speech, PERRL Skin: intact, normal color, warm/dry Lymphatic: No pre/post auricular, submandibular, submental, occipital, adenopathy in cervical, supraclavicular, axillary, inguinal Last 48 Hours of Lab Results: Laboratory Tests 07/20 07/20 07/19 07/19 07/19 0635 0600 1142 0900 0854 Chemistry Troponin I (<0.11 ng/ml) < 0.01 Triglycerides Cancelled Cholesterol Cancelled LDL Cholesterol, Calc Cancelled HDL Cholesterol Cancelled Cholesterol/HDL Ratio Cancelled Renin (()) TNP Dopamine Pending Plasma Epinephrine Pending Norepinephrine Pending Total Catecholamines Pending Urines Urine Total Volume Cancelled U Metanephrines 24 Hr Cancelled U Normetanephrine 24h Cancelled U Tot Metanephrine 24h Cancelled 07/19 07/19 07/19 07/19 07/19 0854 0854 0758 0600 0600 Chemistry Sodium (137 - 145 mmol/L) 139 Potassium (3.5 - 5.1 mmol/L) 3.7 Chloride (98 - 107 mmol/L) 107 Carbon Dioxide (22 - 30 mmol/L) 27 Anion Gap (5 - 16) 4 L BUN (9 - 20 mg/dL) 12 Creatinine (0.7 - 1.2 mg/dL) 0.9 Estimated GFR (>60 ml/min) > 60 BUN/Creatinine Ratio (7 - 25 %) 13.3 Hemoglobin A1c (()) TNP 5.3 Troponin I (<0.11 ng/ml) < 0.01 Triglycerides (<150 mg/dL) 195 H Cholesterol (< 200 MG/DL) 192 LDL Cholesterol, Calc (65 - 129 mg/dL) 113 HDL Cholesterol (40 - 60 mg/dL) 40 Cholesterol/HDL Ratio (0.00 - 4.88 %) 5 H Aldosterone Pending TSH (0.270 - 4.200 uIU/mL) 3.100 Free T4 (0.64 - 1.79 ng/dL) Cancelled 1.09 02/05 022007 1813 Chemistry Sodium (137 - 145 mmol/L) 143 Potassium (3.5 - 5.1 mmol/L) 3.9 Chloride (98 - 107 mmol/L) 107 Carbon Dioxide (22 - 30 mmol/L) 28 Anion Gap (5 - 16) 8 BUN (9 - 20 mg/dL) 15 Creatinine (0.7 - 1.2 mg/dL) 0.9 Estimated GFR (>60 ml/min) > 60 BUN/Creatinine Ratio (7 - 25 %) 16.7 Glucose (65 - 99 mg/dL) 91 Calcium (8.4 - 10.2 mg/dL) 8.8 Total Bilirubin (0.2 - 1.3 mg/dL) 0.6 AST (17 - 59 U/L) 32 ALT (21 - 72 U/L) 51 Alkaline Phosphatase (< 127 U/L) 91 Troponin I (<0.11 ng/ml) < 0.01 Total Protein (6.3 - 8.2 g/dL) 6.3 Albumin (3.5 - 5.0 g/dL) 3.7 Globulin (1.9 - 4.2 gm/dL) 2.6 Albumin/Globulin Ratio (1.1 - 2.2 %) 1.4 Coagulation PT (9.4 - 12.5 SEC) 10.5 INR (0.90 - 1.17) 1.00 APTT (25 - 37 SEC) 32 Hematology CBC w Diff NO MAN DIFF REQ WBC (4.8 - 10.8 /CUMM) 5.0 RBC (4.70 - 6.10 /CUMM) 5.36 Hgb (14.0 - 18.0 G/DL) 15.8 Hct (42 - 52 %) 46.0 MCV (80.0 - 94.0 FL) 85.7 MCH (27.0 - 31.0 PG) 29.4 RDW (11.5 - 14.5 %) 13.9 Plt Count (130 - 400 /CUMM) 158 MPV (7.4 - 10.4 FL) 7.2 L Gran % (42.2 - 75.2 %) 62.4 Lymphocytes % (20.5 - 51.1 %) 25.2 Monocytes % (1.7 - 9.3 %) 8.9 Eosinophils % (0 - 5 %) 3.2 Basophils % (0.0 - 2.0 %) 0.3 Absolute Granulocytes (1.4 - 6.5 /CUMM) 3.1 Absolute Lymphocytes (1.2 - 3.4 /CUMM) 1.3 Absolute Monocytes (0.10 - 0.60 /CUMM) 0.4 Absolute Eosinophils (0.0 - 0.7 /CUMM) 0.2 Absolute Basophils (0.0 - 0.2 /CUMM) 0 PUBS MCHC (33.0 - 37.0 G/DL) 34.3 Urines Urine Color (YEL,AMB,STR) YEL Urine Clarity (CLEAR) CLEAR Urine pH (5.0 - 8.0) 6.0 Ur Specific [place] (1.001 - 1.035) >= 1.030 Urine Protein (NEG,<30 MG/DL) NEG Urine Ketones (NEG) NEG Urine Nitrite (NEG) NEG Urine Bilirubin (NEG) NEG Urine Urobilinogen (0.1 - 1.0 EU/dl) 0.2 Ur Leukocyte Esterase (NEG) NEG Ur Microscopic EXAM NOT REQUIRED Urine Hemoglobin (NEG) NEG Urine Glucose (N MG/DL) NEG Imaging/Other Studies: CXR 07/18/2016: No acute cardiopulmonary finding. Assessment/Plan Assessment: Mr. Heaton is a 46-year-old male with history of large B-cell lymphoma s/p stem cell transplant who presents to the hospital for hypertensive urgency. His symptoms have improved. He reports having night sweats in the last few weeks. He has not loss any weight. He has not notice any new pain. His blood work was reviewed today and was noted to be within normal limits. He has no adenopathy on examination. There was mention of a CTA of the chest but I'm unable to find this imaging. The patient does not remember getting it. Radiology does not have the imaging. He has not had any imaging prior to this. It may be an error in documentation. Given the lack of other symptoms, it is unlikely he has recurrence or new disease. I would continue to monitor him with regard to his symptoms at the moment. If he continues to have night sweats or new B symptoms, imaging would be appropriate. Recommendations: 1. Monitor for progression symptoms 2. Can check LDH 3. Follow up as outpatient Problem List: 1. Hypertensive urgency 2. Chest pain 3. History of lymphoma 4. History of auto stem cell transplant Other Findings/Comments: Please call [phone] with any questions or concerns Consult Acknowledgment - Thank you for your consult request.
--- NOTE | 2016-07-20 13:35 | PN- Cardiology ---
Subjective Subjective: * Doing much better without chest discomfort or shortness of breath. No lightheadedness. No diaphoresis last night. * sinus rhythm * BP is improved. Objective Vital Signs and I&Os Vital Signs Date Time Temp Pulse Resp B/P Pulse O2 O2 Flow FiO2 Ox Delivery Rate 07/20 0905 71 146/96 07/20 0700 97.7 71 18 146/96 95 Room Air 07/20 0038 97.7 87 20 120/60 98 Room Air 07/19 2144 85 140/84 07/19 1810 164/80 07/19 1457 97.8 92 18 162/110 97 Room Air Intake & Output 07/20 1600 07/20 0800 07/20 0000 07/19 1600 07/19 0000 Intake Total 130 490 50 50 Output Total Balance 130 490 50 50 Intake, IV 10 10 Intake, Oral 120 480 50 50 Patient 255 lb 255 lb Weight Physical Exam: General: WD/ WN male in NAD; alert and oriented x 3 Neck: no JVD, no carotid bruit, no enlarged lymph nodes Heart: RRR with 2/6 diastolic murmur at the RUSB Lungs: clear bilaterally Extremties: no edema Assessment/Plan Assessment/Plan * Doing much better. BP is now at the upper limits of normal. We will continue Labetolol 200mg BID and aspirin 81mg daily. The patient has been instructed to avoid Aleve and engage in a low sodium diet. We will risk stratify him for ischemia with an outpatient stress test. Follow up in the office in one week. Continue telemetry? No
--- NOTE | 2016-07-21 09:20 | ECHOCARDIOGRAM REPORT ---
NASREENGERARDO Howard Age: 46 : 1970 Gender: M Exam Date: 07/20/2016 10:13 Exam Location: [address] Ht (in): 75 Wt (lb): 255 BSA: 2.50 BP: 146 / 96 Ordering Physician: CASTILLO RASHEED MD Referring Physician: CASTILLO RASHEED MD Technologist: Ronald Bird [facility] Room Number: [id number] Indications: Chest Pain Rhythm: Sinus Technical Quality: Fair FINDINGS Left Ventricle Normal size left ventricle. Mild to moderateconcentric left ventricular hypertrophy. No obvious regional wall motion abnormalities. Normal left ventricular ejection fraction visually estimated at >65%. Abnormal relaxation filling pattern of the left ventricle for age (stage 1 diastolic dysfunction). Right Ventricle Mild right ventricular dilatation. Right Atrium Normal right atrial size. Left Atrium Normal left atrial size. Mitral Valve Mild mitral annular calcification. Mitral valve mildly thickened. No mitral regurgitation. Aortic Valve Trileaflet aortic valve. No aortic valve stenosis or regurgitation. Tricuspid Valve Structurally normal tricuspid valve. No tricuspid regurgitation. Unable to estimate the right ventricular systolic pressure. Pulmonic Valve Pulmonic valve not well visualized. No pulmonic regurgitation. Pericardium No pericardial effusion. Great Vessels Mild aortic dilatation at the level of the sinuses of valsalva (root). Dilated inferior vena cava. CONCLUSIONS Normal size left ventricle with mild concentric left ventricular hypertrophy, no obvious regional wall motion abnormalities, and normal left ventricular ejection fraction estimated at greater than 65%. Abnormal relaxation filling pattern of the left ventricle for age (stage 1 diastolic dysfunction). Mild right ventricular dilatation. Normal atrial size. No valvular stenosis or regurgitation. No pericardial effusion. Mildly dilated aortic root. Dilated inferior vena cava. Chris Brand M.D. (Electronically Signed) Final Date: 21 July 2016 09:19 MEASUREMENTS (Male / Female) Normal Values 2D ECHO LV Diastolic Diameter PLAX 5.2 cm 4.2 - 5.9 / 3.9 - 5.3 cm LV Systolic Diameter PLAX 2.8 cm 2.1 - 4.0 cm LV Fractional Shortening PLAX 46.2 % 25 - 46 % LV Ejection Fraction 2D Teich 77.2 % IVS Diastolic Thickness 1.3 cm LVPW Diastolic Thickness 1.5 cm LV Relative Wall Thickness 0.5 RV Internal Dim ED PLAX 3.4 cm 1.9 - 3.8 cm LVOT Diameter 2.0 cm Aortic Root Diameter 3.9 cm LA Systolic Diameter LX 3.6 cm 3.0 - 4.0 / 2.7 - 3.8 cm Ascending Aorta Diameter 3.5 cm DOPPLER AV Peak Velocity 108.0 cm/s AV Peak Gradient 4.7 mmHg AV Mean Velocity 81.1 cm/s AV Mean Gradient 3.0 mmHg AV Velocity Time Integral 22.7 cm LVOT Peak Velocity 85.0 cm/s LVOT Peak Gradient 2.9 mmHg LVOT Mean Velocity 53.8 cm/s LVOT Mean Gradient 1.0 mmHg LVOT Velocity Time Integral 19.6 cm LVOT Stroke Volume 61.6 cm AV Area Cont Eq vti 2.7 cm AV Area Cont Eq pk 2.5 cm MV Peak Velocity 89.6 cm/s MV Peak Gradient 3.2 mmHg MV Mean Velocity 55.1 cm/s MV Mean Gradient 1.0 mmHg Mitral E Point Velocity 56.3 cm/s Mitral A Point Velocity 80.5 cm/s Mitral E to A Ratio 0.7 MV PHT Velocity 80.1 cm/s MV Deceleration [place] 455.0 cm/s MV Pressure Half Time 52.8 ms MV Area PHT 4.2 cm MV Deceleration Time 472.0 ms PV Peak Velocity 80.0 cm/s PV Peak Gradient 2.6 mmHg PV Mean Velocity 49.8 cm/s PV Mean Gradient 1.0 mmHg PV Velocity Time Integral 13.3 cm LV E' Lateral Velocity 5.9 cm/s Mitral E to LV E' Lateral Ratio 9.5 LV E' Septal Velocity 6.7 cm/s Mitral E to LV E' Septal Ratio 8.4
[2016-10-13] MEDS ORDERED: NEXIUM 24HR22.3 MG PO (15:23)
== END 2016-07-20 15:15 | DRG 305 ==
LOC: ENRESERVDT → ENRESERVTM → ERH 17:56 → ENPENDDIS 22:08 → 1NO 22:08 → ERHI 22:08 → 1NO 07-19 14:44
PROVIDERS: Emergency Medicine; Student in an Organized Health Care Education/Training Program; ADMIT Internal Medicine Interventional Cardiology
DX: I16.0 Hypertensive urgency (principal); E78.5 Hyperlipidemia, unspecified; Z85.72 Personal history of non-Hodgkin lymphomas
CPT/HCPCS: 1NP; ERO; 36415; 76775; 81003; 82436; 93005; 93010; 93306; 96374; 96376; 99291; J1644; J3490

== ENCOUNTER 2016-10-15 01:43 | Observation (INO) | payer OTHER ==
[2016-10-15] VITALS (7 sets, daily range): BP systolic 170–194; BP diastolic 90–112
[~2016-10-15] VITALS: Ht 190.5 cm; Wt 113.4 kg
[~2016-10-15 01:43] MED LIST changes: +ALEVE220 M1 PO; +ASPIRIN81 M4 PO; +DICLOFENAC SODI75 M2 PO; +LABETALOL HCL200 M1 PO; +NEXIUM 24HR22.3 MG PO
--- NOTE | 2016-10-15 14:48 | Admission Core Measures ---
Admission Meds I reviewed the following Meds: Current Medications Sig/Morales Start time Last Medication Dose Stop Time Status Admin Aspirin 81 MG DAILY 10/16 1000 AC (Aspirin) Cefazolin Sodium 1,000 MG ONCE 10/15 0000 NR (Kefzol-Ancef Inj) 10/15 2359 Labetalol HCl 200 MG BID 10/15 2200 AC (Trandate-Normodyne 200MG Tab) Omeprazole 40 MG DAILY AC 10/16 0700 AC (Prilosec) Acute Coronary Syndrome Inclusion Criteria ACS Diagnosis No Inpatient Core Measures LDL Reminder: If No, please order W/I first 24hr of stay Congestive Heart Failure Inclusion Criteria CHF Diagnosis No Cerebrovascular accident Inclusion Criteria CVA/TIA Diagnosis No Inpatient Core Measures Bedside Swallow Eval Reminder: If BSE failed, place ST order Antithrombotic Reminder: Order Antithrombotic Medication by end of day 2 Antithrombotic Reminder: Document Reason Antithrombotic Not ordered by end of day 2 AFIB/Flutter Reminder: If Present, add to problem list AFIB/Flutter Reminder: Order Anticoag Medication for pts with AFIB/Flutter Atherosclerosis Reminder: If Present, add to problem list LDL Reminder: If No, please order W/I first 24hr of stay PT Order Reminder: If No, please order Venous thromboembolism Inpatient Core Measures VTE Risk Factors: Age > 40, Surgery No [facility] VTE prophylaxis d/t No contraindications No VTE Pharm Prophylaxis d/t No contraindications Inclusion Criteria - Per Current guidelines, there needs to be overlap - treatment for the first 5 days of Warfarin therapy. - Parenteral Anticoagulation (IV or SC) needs to be - given along with Warfarin therapy. VTE Diagnosis No VTE Type NONE VTE Confirmed by (Test) NONE Problem List As ranked by this Provider includes Assessment & Plan 1. S/P total thyroidectomy HOME MEDS Home Med List Aspirin (Aspirin*) 81 MG TAB.CHEW 81 MG PO DAILY [facility]ART HEALTH Esomeprazole Magnesium (Nexium 24HR) 22.3 MG CAPSULE.DR 1 CAP PO DAILY GERD ( Reported) Labetalol HCl 200 MG TABLET 200 MG PO BID BP
--- NOTE | 2016-10-15 19:17 | NUR ---
PT ARRIVED TO FLOOR AT 1620 WITH AT BEDSIDE. ALERT AND ORIENTED. PT DENIES ANY NECK PAIN S/P THRYROIDECTOMY BUT IS COMPLAINING OF BILAT ARM PAIN. PT HYPERTENSIVE WITH A BP OF 190/120. SURGICAL PAGED IMMEDIATELY AT 1630. PER SURGICAL PA NADIRA, MORPHINE GIVEN FOR PAIN AND 200 MG PO OF LABETOLOL GIVEN. PT BP RECHECKED, BP REMAINED ELEVATED 190/120. SURGICAL PA PAGED. ORDER RECEIVED TO TRANSFER PT TO TELEMETRY. MOD CAME TO ASSESS THE PATIENT AT 1845. BP RECHECHED WHICH WAS 190/105 PER MOD. PER MOD, BP RECHECKED IN 10 MINUTES AT 1855 BP 190/112. REPORT GIVEN TO TELE NURSE.
--- NOTE | 2016-10-15 19:23 | Cons- Medical ---
ANGELA DILLON 10/15/[id number]: General Information and HPI Consulting Request Date of Consult: 10/15/16 Requested By: ABIEL KEENAN,MINI Scott Reason for Consult: HYPERTENSIVE URGENCY Source of Information: patient, family Exam Limitations: no limitations History of Present Illness: The patient is 46-year-old gentleman with past medical history significant for lymphoma 20 years ago status post radiation and chemotherapy, recent admission at [facility] with hypertensive urgency, recently diagnosed thyroid nodules most likely malignant in nature status post complete thyroidectomy this afternoon and postoperatively his blood pressure was high at 220/120 mmHg. Patient denied any chest pain, headache, shortness of breath, dizziness, any urinary or bowel complaints. He admits for having bilateral upper extremity pain most likely due to his positioning during 5 hours surgery. He denied any nausea or vomiting. His blood pressure when checked manually was 190/110 mmHg in both arms. Allergies/Medications Allergies: Coded Allergies: NO KNOWN ALLERGIES (01/31/15) Home Med List: Aspirin (Aspirin*) 81 MG TAB.CHEW 81 MG PO DAILY HEART HEALTH Esomeprazole Magnesium (Nexium 24HR) 22.3 MG CAPSULE.DR 1 CAP PO DAILY GERD ( Reported) Labetalol HCl 200 MG TABLET 200 MG PO BID BP Current Medications: Current Medications Sig/Morales Start time Last Medication Dose Route Stop Time Status Admin Acetaminophen 1,000 MG .STK-MED ONE 10/15 726 DC IV 10/15 0728 Aspirin 81 MG DAILY 10/16 1000 DC PO Aspirin 81 MG DAILY 10/16 1000 DC PO Aspirin 81 MG DAILY 10/16 1000 AC PO Cefazolin Sodium 2 GM IQ8 10/15 1930 AC N/A 1 UNIT IV 10/16 0029 Cefazolin Sodium 1,000 MG ONCE 10/15 0000 DC IV 10/15 2359 Dextrose/Sodium 1,000 ML .[id number] 10/16 0550 CAN Chloride IV Dextrose/Sodium 1,000 ML .[id number] 10/15 1630 AC 10/15 Chloride IV 10/16 0549 1647 Fentanyl Citrate 250 MCG .STK-MED ONE 10/15 725 DC IM 10/15 726 Heparin Sodium 5,000 UNIT Q8 10/15 2199 DC (Porcine) SC Heparin Sodium 5,000 UNIT Q8 10/15 220 AC (Porcine) SC Hydralazine HCl 10 MG ONCE ONE 10/15 191 UNVr IV 10/15 191 Labetalol HCl 200 MG BID 10/16 1000 AC PO Labetalol HCl 200 MG BID 10/15 2199 DC PO Labetalol HCl 200 MG BID 10/15 2199 DC 10/15 PO 1722 Midazolam HCl 5 MG .STK-MED ONE 10/15 725 DC IM 10/15 07 Morphine Sulfate 2 MG Q1P PRN 10/15 184 AC IV Morphine Sulfate 2 MG Q1P PRN 10/15 1630 DC 10/15 IV 1646 Omeprazole 40 MG DAILY AC 10/16 699 DC PO Omeprazole 40 MG DAILY AC 10/16 699 DC PO Omeprazole 40 MG DAILY AC 10/16 699 AC PO Ondansetron HCl 4 MG Q6P PRN 10/15 184 AC IV Ondansetron HCl 4 MG Q6P PRN 10/15 1630 DC IV Oxycodone/ 1 TAB Q4P PRN 10/15 184 AC Acetaminophen PO Oxycodone/ 2 TAB Q4P PRN 10/15 184 AC Acetaminophen PO Oxycodone/ 1 TAB Q4P PRN 10/15 1630 DC Acetaminophen PO Oxycodone/ 2 TAB Q4P PRN 10/15 1630 DC Acetaminophen PO Patient Medication 1 UNIT ONE NR 10/15 1845 [facility] Teaching ED 10/15 1900 Patient Medication 1 UNIT ONE NR 10/15 184 [facility] ED 10/15 1900 Patient Medication 1 UNIT ONE NR 10/15 1845 [facility] ED 10/15 1900 Patient Medication 1 UNIT ONE NR 10/15 1845 [facility] ED 10/15 1900 Patient Medication 1 UNIT ONE NR 10/15 1700 [facility] ED 10/15 1730 Patient Medication 1 UNIT ONE NR 10/15 1700 [facility] ED 10/15 1730 Remifentanil 5 MG .STK-MED ONE 10/15 726 DC IV 10/15 07 Review of Systems Review of Systems Constitutional: Denies: chills, diaphoresis, fever, malaise. EENTM: Denies: blurred vision, double vision. Cardiovascular: Denies: chest pain, edema. Respiratory: Denies: cough, hemoptysis, orthopnea. GI: Denies: abdominal pain, bloating, constipation. Genitourinary: Denies: discharge, dysuria, frequency. Musculoskeletal: Reports: muscle pain. Skin: Reports: see HPI. Past History Medical History Blood Transfusion Hx: Yes Neurological: headaches EENT: NONE Cardiovascular: hypertension, hyperlipidemia Respiratory: NONE Gastrointestinal: GERD Hepatic: NONE Renal: NONE Musculoskeletal: osteoarthritis Psychiatric: NONE Endocrine: NONE Cancer(s): LYMPHOMA s/p thymectomy Surgical History Surgical History: THYMECTOMY HAMMERTOE SURGERY KNEE SURGERY (left knee surgery, thymectomy) Psychosocial History Where Do You Live? Home Who Do You Live With? spouse Services at Home: None Primary Language: Croatian Smoking Status: Never Smoked Functional Ability ADLs Independent: dressing, eating, toileting, bathing. Ambulation: independent IADLs Independent: shopping, housework, finances, food prep, telephone, transportation , medication admin. Exam & Diagnostic Data Last 24 Hrs of Vital Signs/I&O Vital Signs Date Time Temp Pulse Resp B/P B/P Pulse O2 O2 Flow FiO2 Mean Ox Delivery Rate 10/15 1914 77 20 190/112 95 Nasal 2.0L Cannula 10/15 1722 190/110 10/15 1600 96 Nasal 2.0L Cannula 10/15 1600 98.2 77 16 170/90 96 Nasal 2.0L Cannula Physical Exam General Appearance: no apparent distress, alert, awake Head: atraumatic Respiratory: normal breath sounds Cardiovascular: regular rate/rhythm Extremities: normal inspection Last 24 Hrs of Labs/Darrell: Laboratory Tests 10/15 10/15 10/15 10/15 2200 2000 1500 0645 Chemistry Sodium (137 - 145 mmol/L) 138 Potassium (3.5 - 5.1 mmol/L) 3.9 Chloride (98 - 107 mmol/L) 101 Carbon Dioxide (22 - 30 mmol/L) 27 Anion Gap (5 - 16) 10 BUN (9 - 20 mg/dL) 14 Creatinine (0.7 - 1.2 mg/dL) 1.0 Estimated GFR (>60 ml/min) > 60 BUN/Creatinine Ratio (7 - 25 %) 14.0 Calcium (8.4 - 10.2 mg/dL) Pending 8.6 Total Bilirubin (0.2 - 1.3 mg/dL) 1.1 Direct Bilirubin (< 0.4 mg/dL) 0.3 AST (17 - 59 U/L) 83 H ALT (21 - 72 U/L) 79 H Alkaline Phosphatase (< 127 U/L) 83 Troponin I (<0.11 ng/ml) < 0.01 Zom-[id number]-Kynxttmslxo Pept (<125 pg/mL) 341 H Total Protein (6.3 - 8.2 g/dL) 6.1 L Albumin (3.5 - 5.0 g/dL) Pending 3.8 3.4 L Cancelled Laboratory Tests 10/15/16 1500: Calcium 8.6, Albumin 3.4 L Assessment/Plan Assessment/Plan The patient is 46-year-old gentleman with past medical history significant for lymphoma 20 years ago status post radiation and chemotherapy, recently diagnosed multiple thyroid nodules status post total thyroidectomy and GI bleeding and found to have high blood pressure postoperatively most likely due to anesthesia effect and pain. She was already given his home dose of 200 mg of labetalol. Please transfer patient to telemetry floor for closer monitoring * We will give him 1 dose of 10 mg hydralazine IV stat * Please monitor his blood pressure every 1-2 hours * Please continue his home dose of labetalol * Please order BMP and troponins to rule out ACS/and electrolyte imbalance * If his blood pressure remained stable and he should be continued on his home dose of labetalol 200 mg twice a day Thank you for allowing us to participate in patient's care. Feel free to call [phone] for any question Problem List: 1. History of lymphoma 2. Hypertensive urgency Consult Acknowledgment - Thank you for your consult request. POPPYJULIO PETER 10/16/16 0532: Assessment/Plan Consult Acknowledgment - Thank you for your consult request. Attending MD Review Statement Attending Statement Attending MD Statement: examined this patient, discuss w/resident/PA/BMET, agreed w/resident/PA/BMET, discussed with family, reviewed EMR data (avail), reviewed images, amended to note Attending Assessment/Plan: Cc: High blood pressure PMH: Lymphoma S/P chemotherapy, radiation, thymectomy, recently diagnosed hypertension Patient underwent thyroidectomy today, after the procedure his blood pressure was running in 190/110, persistently elevated for more than 2 hour even after giving his home doses of labetalol so we were called in for consult. Patient currently asymptomatic, no chest pain, chest tightness, palpitations, dizziness. Vitals: Afebrile, RR, HR, O2 saturation in acceptable range. Blood pressure persistently 190/110. On exam: A O 3, cooperative, no acute distress, neck supple, JVD normal, no lymphadenopathy, mucosa moist, no focal neurological deficit, no dependent edema , no obvious skin rashes or inflammation, neck wound dressed CVS: S1-S2, RRR. RS : Clear to auscultate bilaterally. Abdomen: Soft, NT, ND, bowel sounds present. Labs unremarkable A and P + Hypertensive urgency - Home dose of labetalol was held for surgery and was resumed thereafter. - Transferred to telemetry, IV push for hydralazine 10 mg - Monitor blood pressure after 2 hour - Reevaluate for IV versus by mouth antihypertensive - Continue home doses of labetalol - Goal blood pressure decrease 25-30% from previous values, then gradually increase antihypertensive tomorrow - Appreciate consult we will follow along
--- NOTE | 2016-10-15 20:12 | Operative Report ---
Operative/Inv Procedure Report Surgery Date: 10/15/16 Name of Procedure: Total thyroidectomy Pre-Operative Diagnosis: Thyroid follicular neoplasm Post-Operative Diagnosis: Same Estimated Blood Loss: less than 50ml Surgeon/Marketing Representative: ABIEL KEENAN,MINI HILL Anesthesia: general endotracheal tube Operative/Procedure Note Note: Patient was placed on the OR table supine, over the thyroid bar, after successful induction of general anesthesia and the timeouts, and setting up the NIMS electrodes for monitoring, the patient's neck from chin to chest were clipped prepped and draped in the usual sterile fashion. We had already marked a skin crease near the cricoid in Same Day, and then infiltrated local anesthetic and then made this incision with a 15 blade, extending between the medial borders of the sternocleidomastoid muscles. The incision was deepened through the subcutaneous fat and subplatysmal flaps, preserving the underlying anterior jugular veins, were made superiorly to the thyroid cartilage and inferiorly not quite to the sternal notch. The midline was identified between the strap muscles and opened vertically and then using an Allis clamp first, we started on the right side, the sternohyoid and then the sternal thyroid muscles were and then retracted laterally off the thyroid towards the carotid sheath. At that deep lateral extent we proceeded superiorly to mobilize the upper pole, which was very narrow pointed and reached very high to the top of the thyroid cartilage level higher than on the left and we could see this on preoperative imaging all with the Harmonic scalpel, care was taken to disconnect the entire tip of the upper pole requiring dissection both medial and lateral, the medial window was important to preserve the motor branch of the superior laryngeal, also posteriorly, care was taken to preserve both the blood supply and the superior parathyroid gland as it was swept off the posterior capsule. Once the branches of the superior thyroid vessels were divided, the upper pole was mobilized and brought down and out into the incision. We then mobilized laterally at the middle of the lobe and then inferiorly around the inferior pole and back here there was the inferior parathyroid gland which was also preserved. This step on the right side dissecting the lobe out was very difficult there were more firm nodules on this side the gland substance was much thicker fibrotic almost calcified the nodule in question was larger softer and more medial at the isthmus but that was anchored in scar from previous surgery and probably radiation, after extensive dissection in the interest of safety and bleeding and injury to nerves I stopped and went to the other side of the table to dissect out the left lobe which was much more supple, and a shorter upper pole. Then we turned our dissection directly over the trachea to find the isthmus which was then divided. Once the isthmus was divided, we got a better sense of Awtson's ligament which we left for last, where branches of the inferior thyroid vessels and the recurrent laryngeal nerve come close. We were able to get the dissection just inside the capsule and disconnected the lobe completely from the lateral aspect of the trachea without getting too close to the nerve. This nerve was identified and preserved. Next we checked for hemostasis no sutures or Surgicel were needed, we placed a 10 [place] round Josue-Villegas drain into the area through a separate stab incision, secured to the skin with a nylon suture, and then closed by first reapproximating the strap muscles over the trachea in the middle paying care not to injure those jugular veins on either side, and then the platysma was reapproximated with a running 3-0 Vicryl suture as well, then the skin was reapproximated with a running subcuticular 4-0 Biosyn suture followed by Mastisol Steri-Strips Telfa and Tegaderm. Estimated blood loss was minimal lap and sponge counts were correct wound expectancy was clean, IV fluids crystalloid, complications none, patient tolerated the procedure well was awakened extubated and returned to the recovery room in satisfactory condition where once more awake, was able to phonate without any significant hoarseness.
--- NOTE | 2016-10-15 21:54 | PN- General Surgery ---
Subjective Subjective: Postop check, POD #0 s/p Total thyroidectomy. Pt initially transferred to the gen med floor and found to be hypertensive at 200/100. He was due for his evening dose of labetalol, which was given. Repeat BP was 179/122. Medical consult was called and pt was subsequently transferred to telemetry for IV BP meds. Hydralazine 10mg IV x 1 was given, and BP is most recently 178/98. Pt is relatively comfortable at this time. Pain is controlled. Tolerating clears. No nausea or vomiting. Voided x 2. No ambulation as of yet because sitting up at the edge of the bed induced nausea. Objective Vital Signs and I&Os Vital Signs Date Time Temp Pulse Resp B/P B/P Pulse O2 O2 Flow FiO2 Mean Ox Delivery Rate 10/15 2244 80 184/104 10/15 2130 72 178/98 10/15 2045 78 178/100 10/15 2015 78 198/110 10/15 2000 97.9 78 16 188/110 92 Nasal 2.0L Cannula 10/15 1914 77 20 190/112 95 Nasal 2.0L Cannula 10/15 1722 190/110 10/15 1600 96 Nasal 2.0L Cannula 10/15 1600 98.2 77 16 170/90 96 Nasal 2.0L Cannula Physical Exam: General: Patient is awake and alert. No acute distress. HEENT: Pupils are round and reactive to light and accommodation. EOMs are intact. Cranial nerves are grossly intact. Tongue is midline. Small amount of serosanginous drainage noted in LEOLA. Cardiac: Regular. Pulmonary: There is an old well-healed midline sternotomy incision, in addition to a right sided horizontal incision. Lungs are otherwise clear to auscultation bilaterally. Results Last 48 Hours of Labs: Laboratory Tests 10/15 10/15 10/15 10/15 2200 2000 1500 0645 Chemistry Sodium (137 - 145 mmol/L) 138 Potassium (3.5 - 5.1 mmol/L) 3.9 Chloride (98 - 107 mmol/L) 101 Carbon Dioxide (22 - 30 mmol/L) 27 Anion Gap (5 - 16) 10 BUN (9 - 20 mg/dL) 14 Creatinine (0.7 - 1.2 mg/dL) 1.0 Estimated GFR (>60 ml/min) > 60 BUN/Creatinine Ratio (7 - 25 %) 14.0 Calcium (8.4 - 10.2 mg/dL) 8.3 L 8.6 Total Bilirubin (0.2 - 1.3 mg/dL) 1.1 Direct Bilirubin (< 0.4 mg/dL) 0.3 AST (17 - 59 U/L) 83 H ALT (21 - 72 U/L) 79 H Alkaline Phosphatase (< 127 U/L) 83 Troponin I (<0.11 ng/ml) < 0.01 Imh-X-Nalzlbxstga Pept (<125 pg/mL) 341 H Total Protein (6.3 - 8.2 g/dL) 6.1 L Albumin (3.5 - 5.0 g/dL) 3.5 3.8 3.4 L Cancelled Assessment/Plan Assessment/Plan Patient is a 46-year-old male with a history of non-Hodgkin's lymphoma, recent diagnosis of hypertension, and thyroid cancer, who is now postoperative day #0 status post total thyroidectomy. Patient experienced hypertensive urgency was transferred to telemetry floor for continuous monitoring and administration of IV meds. Plan: -Appreciate medicine input for management of hypertension. Continue B charity. -Pain control with morphine or percocet as needed. -Clear liquid diet for now. IVF are heplocked. -SC heparin and alps for dvt ppx. Encourage ambulation. -Ca dropped to 8.3 from 8.7. Continue to monitor for now. -LEOLA drain in place. Will likely remove drain tomorrow. -24 hour antibiotic prophylaxis. Core Measures/Miscellaneous Venous Thromboembolism VTE Risk Factors: Age > 40, Surgery VTE Contraindications: No Contraindications VTE Diagnosis: No VTE Type: NONE VTE Confirmed by (Test): NONE Beta Charity Is Beta Charity a Home Med? Yes If Yes, Was This Ordered Today? Yes Antibiotics Is Patient on Antibiotics? Yes If Yes: prophylaxis
[2016-10-16 01:00] VITALS: BP 164/100
[2016-10-16 04:00] VITALS: BP 154/96
[2016-10-16 07:56] VITALS: BP 170/100
--- NOTE | 2016-10-16 08:23 | Patient Discharge Instructions ---
Discharge Instructions General Discharge Information You were seen/treated for: Thyroid follicular neoplasm hypertension You had these procedures: Surgery Date: 10/15/16 Name of Procedure: Total thyroidectomy Watch for these problems: fever>101.3, increased pain, redness/swelling/drainage, dizziness, shortness of breath, chest pains, difficulty swallowing No bath, but you may shower: Yes Other wound care: ok to remove outer dressing. leave white steri strips in place. Special Instructions: keep incision clean & dry Check blood pressure prior to taking medications to avoid pressure becoming too low with the addition of new medications. Please follow up with Dr. Morley after discharge from hospital. Diet Continue normal diet: Yes Recommended Diet: Regular Activity Full Activity/No Limits: Yes Activity Self Limited: Yes Acute Coronary Syndrome Inclusion Criteria At DC or during hospital stay patient has or had the following: ACS DIAGNOSIS No Discharge Core Measures Meds if any: Prescribed or Continued at Discharge Meds if any: NOT Prescribed or Continued at Discharge Congestive Heart Failure Inclusion Criteria At DC or during hospital stay patient has or had the following: CHF DIAGNOSIS No Discharge Core Measures Meds if any: Prescribed or Continued at Discharge Meds if any: NOT Prescribed or Continued at Discharge Cerebrovascular accident Inclusion Criteria At DC or during hospital stay patient has or had the following: CVA/TIA Diagnosis No Discharge Core Measures Meds if any: Prescribed or Continued at Discharge Meds if any: NOT Prescribed or Continued at Discharge Venous thromboembolism Inclusion Criteria VTE Diagnosis No VTE Type NONE VTE Confirmed by (Test) NONE Discharge Core Measures - Per Current guidelines, there needs to be overlap - treatment for the first 5 days of Warfarin therapy. - If discharged on Warfarin prior to 5 days of - overlap therapy, the patient will need to be - assessed for post discharge needs including - *Post discharge parental anticoagulation - *Warfarin and/or parental anticoagulation education - *Follow up date to check INR post discharge At least 5 days overlap therapy as Inpatient No Meds if any: Prescribed or Continued at Discharge Note: Overlap Therapy is Warfarin and Anticoagulant Meds if any: NOT Prescribed or Continued at Discharge
[2016-10-16 09:08] LABS: ABSOLUTE BASOPHIL COUNT 0 /CUMM (0.0-0.2); ABSOLUTE EOSINOPHIL COUNT 0.1 /CUMM (0.0-0.7); ABSOLUTE GRANULOCYTE CT 4.5 /CUMM (1.4-6.5); ABSOLUTE LYMPH COUNT 0.8 /CUMM (1.2-3.4); ABSOLUTE MONOCYTE COUNT 0.5 /CUMM (0.10-0.60); BASOPHIL % 0.3 % (0.0-2.0); EOSINOPHIL % 1.6 % (0-5); GRANULOCYTE % 75.9 % (42.2-75.2); HEMATOCRIT 44.1 % (42-52); MEAN CORPUSCULAR HGB CONC 33.9 G/DL (33.0-37.0); MEAN CORPUSCULAR VOLUME 85.6 FL (80.0-94.0); MEAN PLATELET VOLUME 8.1 FL (7.4-10.4); PLATELET COUNT 128 /CUMM (130-400); RBC DISTRIBUTION WIDTH 14.4 % (11.5-14.5); RED BLOOD CELL CT 5.15 /CUMM (4.70-6.10)
--- NOTE | 2016-10-16 11:00 | PN- General Surgery ---
Subjective Subjective: Reported a headache and shoulder pain this morning. His blood pressure continues to be significantly elevated. He is tolerating clears. No nausea. Reports some dizziness when he sits up and gets out of bed. Denies shortness of breath. No chest pains. Voiding well. Objective Vital Signs and I&Os Vital Signs Date Time Temp Pulse Resp B/P B/P Pulse O2 O2 Flow FiO2 Mean Ox Delivery Rate 10/16 1023 71 178/100 05/ 0756 98.6 71 14 170/100 98 Room Air 10/16 0400 74 154/96 05/ 0100 88 164/100 05/ 0030 81 194/110 / 0000 Nasal 2.0L Cannula 10/15 2331 85 194/110 10/15 2245 80 184/104 10/15 2130 72 178/98 10/15 2045 78 178/100 10/15 2015 78 198/110 10/15 2000 97.9 78 16 188/110 92 Nasal 2.0L Cannula 10/15 1914 77 20 190/112 95 Nasal 2.0L Cannula 10/15 1722 190/110 10/15 1600 96 Nasal 2.0L Cannula 10/15 1600 98.2 77 16 170/90 96 Nasal 2.0L Cannula Intake & Output 10/16 1600 / 0800 05/ 0000 10/15 1600 10/15 0800 10/15 0000 Intake Total 350 Output Total 460 Balance -110 Intake, IV 100 Intake, Oral 250 Number 0 Bowel Movements Output, 10 Drainage Output, Urine 450 Patient 250 lb Weight Physical Exam: General - alert & oriented x 3. comfortable. no acute distress. Neck - dressing c/d/i. LEOLA drain with serosang drainage (just emptied). no hematoma appreciated. Lungs - clear bilaterally. no w/r/r. Cardiac - s1s2. reg. Abdomen - soft. nontender. Extremities - warm bilaterally. no c/c/e. calves soft and nontender b/l. Assessment/Plan Assessment/Plan This 46-year-old male with a history of non-Hodgkin's lymphoma, recent diagnosis of hypertension, and thyroid cancer, who is now postoperative day #1 s/p total thyroidectomy, post-op hypertensive urgency for which he has been transferred to telemetry floor for continuous monitoring and administration of IV meds as needed tolerating clears. off iv fluids. advance to regular diet called medical staffing coordinator to follow up hypertension / recommendations. ?add bp med monitor LEOLA drain output (strictly record qshift) toradol / percocet prn pain control hep sc - dvt ppx f/u labs called endocrine consult for recommendations re: post-throidectomy state / meds d/c planning once hypertension is controlled / cleared by medical team d/w Core Measures/Miscellaneous Venous Thromboembolism VTE Risk Factors: Age > 40, Surgery VTE Contraindications: No Contraindications VTE Diagnosis: No VTE Type: NONE VTE Confirmed by (Test): NONE Beta Charity Is Beta Charity a Home Med? Yes If Yes, Was This Ordered Today? Yes Antibiotics Is Patient on Antibiotics? Yes If Yes: prophylaxis
--- NOTE | 2016-10-16 12:02 | Cons- Endocrinology ---
General Information and HPI Consulting Request Date of Consult: 10/16/16 Requested By: SURGICAL TEAM Reason for Consult: management of hypothyroidism and hypocalcemia. Source of Information: patient, old records Exam Limitations: no limitations History of Present Illness: 46 y/o male, hx of nonHodgkin's lymphoma s/p chemotherapy and radiation treatment in the past, was found to have thyroid nodules with a dominant thyroid nodule in isthmus measuring 2.8 cm, FNA findings were consistent with follicular lesion with the risk of malignancy of 30%. Patient underwent total thyroidectomy on 10/15/2016. His calcium level has been lower than the normal range. His BP was elevated and medical team is on board. Currently he is on Labetolol 200 mg twice a day. He denied having any muscle cramps. He didn't have any numbness or tingling sensation. Allergies/Medications Allergies: Coded Allergies: NO KNOWN ALLERGIES (01/31/15) Home Med List: Aspirin (Aspirin*) 81 MG TAB.CHEW 81 MG PO DAILY [facility] Esomeprazole Magnesium (Nexium 24HR) 22.3 MG CAPSULE. 1 CAP PO DAILY GERD ( Reported) Labetalol HCl 200 MG TABLET 200 MG PO BID BP Review of Systems Review of Systems Constitutional: Reports: see HPI. Cardiovascular: Reports: see HPI. Respiratory: Denies: short of breath. GI: Denies: abdominal pain. Musculoskeletal: Denies: back pain. Hematologic/Endocrine: Denies: polyuria, polydipsia. Past History Medical History Blood Transfusion Hx: Yes Neurological: headaches EENT: NONE Cardiovascular: hypertension, hyperlipidemia Respiratory: NONE Gastrointestinal: GERD Hepatic: NONE Renal: NONE Musculoskeletal: osteoarthritis Psychiatric: NONE Endocrine: NONE Cancer(s): LYMPHOMA s/p thymectomy Surgical History Surgical History: THYMECTOMY HAMMERTOE SURGERY KNEE SURGERY (left knee surgery, thymectomy) Psychosocial History Where Do You Live? Home Who Do You Live With? spouse Services at Home: None Primary Language: Maori Smoking Status: Never Smoked Functional Ability ADLs Independent: dressing, eating, toileting, bathing. Ambulation: independent IADLs Independent: shopping, housework, finances, food prep, telephone, transportation , medication admin. Exam & Diagnostic Data Last 24 Hrs of Vital Signs/I&O Vital Signs Date Time Temp Pulse Resp B/P B/P Pulse O2 O2 Flow FiO2 Mean Ox Delivery Rate 10/16 1023 71 178/100 10/16 0756 98.6 71 14 170/100 98 Room Air 10/16 0400 74 154/96 10/16 0100 88 164/100 10/16 0030 81 194/110 05 0000 Nasal 2.0L Cannula 10/15 2331 85 194/110 10/15 2245 80 184/104 10/15 2130 72 178/98 10/15 2044 78 178/100 10/15 2014 78 198/110 10/16 1999 97.9 78 16 188/110 92 Nasal 2.0L Cannula 10/15 1914 77 20 190/112 95 Nasal 2.0L Cannula 10/15 1722 190/110 10/15 1600 96 Nasal 2.0L Cannula 10/15 1600 98.2 77 16 170/90 96 Nasal 2.0L Cannula Intake & Output 10/16 1600 10/16 0800 05 0000 Intake Total 350 Output Total 460 Balance -110 Intake, IV 100 Intake, Oral 250 Number 0 Bowel Movements Output, 10 Drainage Output, Urine 450 Patient 250 lb Weight Physical Exam General Appearance: no apparent distress Neck: s/p total thyroidectomy Respiratory: lungs clear Cardiovascular: regular rate/rhythm Gastrointestinal: soft Extremities: no edema Labs/Darrell Results: Laboratory Tests 10/16 10/15 10/15 10/15 060 1999 1500 Chemistry Sodium (137 - 145 mmol/L) 139 138 Potassium (3.5 - 5.1 mmol/L) 4.0 3.9 Chloride (98 - 107 mmol/L) 102 101 Carbon Dioxide (22 - 30 mmol/L) 26 27 Anion Gap (5 - 16) 11 10 BUN (9 - 20 mg/dL) 11 14 Creatinine (0.7 - 1.2 mg/dL) 0.9 1.0 Estimated GFR (>60 ml/min) > 60 > 60 BUN/Creatinine Ratio (7 - 25 %) 12.2 14.0 Calcium (8.4 - 10.2 mg/dL) 8.1 L 8.3 L 8.6 Total Bilirubin (0.2 - 1.3 mg/dL) 1.1 Direct Bilirubin (< 0.4 mg/dL) 0.3 AST (17 - 59 U/L) 83 H ALT (21 - 72 U/L) 79 H Alkaline Phosphatase (< 127 U/L) 83 Troponin I (<0.11 ng/ml) < 0.01 [id number] Pept (<125 pg/mL) 341 H Total Protein (6.3 - 8.2 g/dL) 6.1 L Albumin (3.5 - 5.0 g/dL) 3.4 L 3.5 3.8 3.4 L Hematology CBC w Diff NO MAN DIFF REQ WBC (4.8 - 10.8 /CUMM) 6.0 RBC (4.70 - 6.10 /CUMM) 5.15 Hgb (14.0 - 18.0 G/DL) 14.9 Hct (42 - 52 %) 44.1 MCV (80.0 - 94.0 FL) 85.6 MCH (27.0 - 31.0 PG) 29.0 RDW (11.5 - 14.5 %) 14.4 Plt Count (130 - 400 /CUMM) 128 L MPV (7.4 - 10.4 FL) 8.1 Gran % (42.2 - 75.2 %) 75.9 H Lymphocytes % (20.5 - 51.1 %) 13.8 L Monocytes % (1.7 - 9.3 %) 8.4 Eosinophils % (0 - 5 %) 1.6 Basophils % (0.0 - 2.0 %) 0.3 Absolute Granulocytes (1.4 - 6.5 /CUMM) 4.5 Absolute Lymphocytes (1.2 - 3.4 /CUMM) 0.8 L Absolute Monocytes (0.10 - 0.60 /CUMM) 0.5 Absolute Eosinophils (0.0 - 0.7 /CUMM) 0.1 Absolute Basophils (0.0 - 0.2 /CUMM) 0 PUBS MCHC (33.0 - 37.0 G/DL) 33.9 Assessment/Plan Assessment/Plan patient underwent total thyroidectomy on 10/15/2016. POD #1. 1. hypothyropidism: ---start Levothyroxine 200 mcg daily; ---monitor TSH and free T4 in 2 weeks. 2. mild hypocalcemia ---start calcium 600 mg twice a day; ---start calcitriol 0.25 mcg daily x 2 weeks; ---monitor calcium, BMP, albumin, PTH and 25 OH vitamin D in the morning. will follow. Consult Acknowledgment - Thank you for your consult request.
--- NOTE | 2016-10-16 12:15 | PN- General Surgery ---
Surgical Brief Attending Note Brief Attending Note: His right shoulder hurts him more than the neck or the left shoulder, he's having a headache he is on telemetry for high blood pressure but he says his voice is strong he's tolerating diet, vital signs are stable otherwise calcium corrects but is drifting down but discussed with endocrinology his LEOLA drain wasn 't recorded but if later today it doesn't drain much like less than 15 in a shift and we can remove otherwise will go home with the drain on exam his neck is soft without obvious hematoma in the drain is become first cook serous.
[2016-10-16 15:30] VITALS: BP 118/68
--- NOTE | 2016-10-16 19:46 | PN- Medicine Consult ---
Assessment/Plan Assessment/Plan Assessment: 46M PMH lymphoma 20 years ago status post radiation and chemotherapy, recent admission at [facility] with hypertensive urgency, recently diagnosed thyroid nodules most likely malignant in nature status post complete thyroidectomy. Medicine consulted for hypertensive urgency and headache. BP improved following starting home Labetalol, still not yet at goal. Patient reports frontal headache but is otherwise well. Plan: - Management by surgery - Will start Amodipine 2.5mg daily - Continue Labetalol - Follow endocrine recommendations for Synthroid and calcium management - Will follow with you Subjective Subjective: Patient reports frontal headache today. Otherwise no complaints. No pain at surgical site. No neurological symptoms. Review of Systems Constitutional: Reports: see HPI. EENTM: Reports: see HPI. Cardiovascular: Reports: no symptoms. Respiratory: Reports: no symptoms. Gastrointestinal: Reports: no symptoms. Genitourinary: Reports: no symptoms. Musculoskeletal: Reports: no symptoms. Skin: Reports: no symptoms. Neurological/Psychological: Reports: no symptoms. Hematologic/Endocrine: Reports: see HPI. Immunologic/Allergic: Reports: no symptoms. Objective Last 24 Hrs of Vital Signs/I&O Vital Signs Date Time Temp Pulse Resp B/P B/P Pulse O2 O2 Flow FiO2 Mean Ox Delivery Rate 10/16 1530 98.3 75 16 118/68 94 Room Air / 1416 71 178/100 05/ 1023 71 178/100 / 0756 98.6 71 14 170/100 98 Room Air / 0400 74 154/96 / 0100 88 164/100 05/ 0030 81 194/110 05/06 0000 Nasal 2.0L Cannula 10/15 2331 85 194/110 10/15 2245 80 184/104 10/15 2130 72 178/98 10/15 2045 78 178/100 10/15 2014 78 198/110 10/15 2000 97.9 78 16 188/110 92 Nasal 2.0L Cannula Intake & Output 10/16 1600 05/06 0800 05/06 0000 Intake Total 350 Output Total 400 460 Balance -400 -110 Intake, IV 100 Intake, Oral 250 Number 0 Bowel Movements Output, 10 Drainage Output, Urine 400 450 Patient 113.398 kg Weight Physical Exam General Appearance: no apparent distress, comfortable Head: normal appearance Ears, Nose, Throat: normal ENT inspection Neck: normal inspection Cardiovascular: regular rate/rhythm Respiratory: normal breath sounds Abdomen: soft Extremities: normal inspection Neurologic/Psychiatric: no motor/sensory deficits Skin: intact Current Medications: Current Medications Sig/Morales Start time Last Medication Dose Route Stop Time Status Admin Acetaminophen 1,000 MG ONCE ONE 10/16 0745 DC 10/16 N/A 1 UNIT IV 10/16 0759 1023 Amlodipine Besylate 2.5 MG DAILY 10/16 1257 AC 10/16 PO 1416 Aspirin 81 MG DAILY 10/16 1000 DC PO Aspirin 81 MG DAILY 10/16 1000 DC PO Aspirin 81 MG DAILY 10/16 1000 AC 10/16 PO 1022 Calcitriol 0.25 MCG DAILY 10/16 1145 AC 10/16 PO 1415 Calcium 600 MG BID 10/16 1146 AC 10/16 PO 1415 Cefazolin Sodium 2 GM IQ8 10/15 1930 DC 10/16 N/A 1 UNIT IV 10/16 0029 0401 Dextrose/Sodium 1,000 ML .[id number] 10/15 1630 DC 10/15 Chloride IV 10/16 0549 1647 Heparin Sodium 5,000 UNIT Q8 10/15 2200 DC (Porcine) SC Heparin Sodium 5,000 UNIT Q8 10/15 2200 AC 10/16 (Porcine) SC 1416 Ketorolac 30 MG Q6-PRN PRN 10/16 0745 AC 10/16 Tromethamine IV 1712 Labetalol HCl 200 MG BID 10/16 1000 AC 10/16 PO 1023 Labetalol HCl 10 MG ONCE ONE 10/15 2345 DC 10/16 IV 10/15 2346 0030 Labetalol HCl 200 MG BID 10/15 220 DC PO Labetalol HCl 200 MG BID 10/15 2200 DC 10/15 PO 1722 Levothyroxine Sodium 0.2 MG DAILY AC 10/16 1147 AC 10/16 PO 1415 Morphine Sulfate 2 MG Q1P PRN 10/15 184 AC IV Omeprazole 40 MG DAILY AC 10/16 699 DC PO Omeprazole 40 MG DAILY AC 10/16 699 DC PO Omeprazole 40 MG DAILY AC 10/16 0700 AC 10/16 PO 1022 Ondansetron HCl 4 MG Q6P PRN 10/15 1845 AC IV Oxycodone/ 1 TAB Q4P PRN 10/15 1845 AC 10/16 Acetaminophen PO 0400 Oxycodone/ 2 TAB Q4P PRN 10/15 1845 AC Acetaminophen PO Results Last 24 Hrs Lab/Darrell Results: Laboratory Tests 10/16/16 0625: Anion Gap 11, Estimated GFR > 60, BUN/Creatinine Ratio 12.2, Calcium 8.1 L, Albumin 3.4 L, CBC w Diff NO MAN DIFF REQ, RBC 5.15, MCV 85.6, MCH 29.0, RDW 14.4, MPV 8.1, Gran % 75.9 H, Lymphocytes % 13.8 L, Monocytes % 8.4, Eosinophils % 1.6, Basophils % 0.3, Absolute Granulocytes 4.5, Absolute Lymphocytes 0.8 L, Absolute Monocytes 0.5, Absolute Eosinophils 0.1, Absolute Basophils 0, PUBS MCHC 33.9 10/15/16 2200: Calcium 8.3 L, Albumin 3.5 10/15/16 2000: Anion Gap 10, Estimated GFR > 60, BUN/Creatinine Ratio 14.0, Total Bilirubin 1.1 , Direct Bilirubin 0.3, AST 83 H, ALT 79 H, Alkaline Phosphatase 83, Troponin I < 0.01, [id number]-[id number] Pept 341 H, Total Protein 6.1 L, Albumin 3.8
[2016-10-16 22:00] VITALS: BP 124/78
[2016-10-17 07:59] VITALS: BP 170/100
[2016-10-17 09:19] LABS: ABSOLUTE BASOPHIL COUNT 0 /CUMM (0.0-0.2); ABSOLUTE EOSINOPHIL COUNT 0.1 /CUMM (0.0-0.7); ABSOLUTE GRANULOCYTE CT 3.1 /CUMM (1.4-6.5); ABSOLUTE LYMPH COUNT 0.9 /CUMM (1.2-3.4); ABSOLUTE MONOCYTE COUNT 0.4 /CUMM (0.10-0.60); BASOPHIL % 0.5 % (0.0-2.0); EOSINOPHIL % 1.9 % (0-5); GRANULOCYTE % 69.8 % (42.2-75.2); HEMATOCRIT 44.5 % (42-52); MEAN CORPUSCULAR HGB 28.8 PG (27.0-31.0); MEAN CORPUSCULAR HGB CONC 33.6 G/DL (33.0-37.0); MEAN CORPUSCULAR VOLUME 85.7 FL (80.0-94.0); PLATELET COUNT 130 /CUMM (130-400); RBC DISTRIBUTION WIDTH 14.8 % (11.5-14.5); RED BLOOD CELL CT 5.19 /CUMM (4.70-6.10); WHITE BLOOD CELL COUNT 4.4 /CUMM (4.8-10.8)
[2016-10-17 09:22] VITALS: BP 170/98
--- NOTE | 2016-10-17 09:54 | PN- General Surgery ---
See Addendum Surgical Brief Attending Note Brief Attending Note: doing well. ca stable borderline low, expected. d/c drain and d/c home.
[2016-10-17] MEDS ORDERED: SYNTHROID200 MCG PO (10:23)
[2016-10-17] MEDS ORDERED: ROCALTROL0.25 MC1 PO (10:23)
[2016-10-17] MEDS ORDERED: TUMS200 MG PO (10:26)
[2016-10-17] MEDS ORDERED: NORVASC2.5 M1 PO (10:27)
[2016-10-17] MEDS ORDERED: PERCOCET 5-3251 EACH PO (11:10)
[2016-10-17] MEDS ORDERED: VITAMIN D31000 UNI2 PO (11:17)
[2016-10-17 11:21] VITALS: BP 172/100
--- NOTE | 2016-10-17 11:24 | PN- Endocrinology ---
Assessment/Plan Assessment: patient underwent total thyroidectomy on 10/15/2016. POD #2. His calcium level was borderline low. He was put on calcium 600 mg twice a day, calcitriol 0.25 mcg daily and Levothyroxine 200 mcg daily. He is going home today as per surgical team. Repeat calcium was 8.3, albumin 3.4, PTH 56.1 and 25 OH vitamin D 20.9. His corrected calcium was 8.7. Plan: Discharge plan: 1. Levothyroxine 200 mcg daily; 2. calcium 600 mg twice a day; 3. calcitriol 0.25 mcg daily x 2 weeks; 4. vitamin D 1000 units daily; 5. monitor TFT, BMP, PTH and 25 OH vitamin D in 2 weeks and f/u in office after discharge. Subjective Subjective: He feels well and will go home today. Objective Last 24 Hrs of Vital Signs/I&O Vital Signs Date Time Temp Pulse Resp B/P B/P Pulse O2 O2 Flow FiO2 Mean Ox Delivery Rate 10/17 1121 77 172/100 10/17 0922 76 170/98 10/17 0759 98.1 76 14 170/100 96 Room Air 10/17 0756 102 174/102 10/17 0756 82 174/102 / 2200 98.4 68 16 124/78 97 Room Air 10/16 2153 68 124/78 10/16 1530 98.3 75 16 118/68 94 Room Air 10/16 1416 71 178/100 Intake & Output 10/17 1600 10/17 0800 05 0000 Intake Total 100 500 Output Total 5 10 Balance 95 490 Intake, IV 0 0 Intake, Oral 100 500 Number 0 0 Bowel Movements Output, 5 10 Drainage Results Pertinent Lab/Darrell Results: Laboratory Tests 10/17 753 Chemistry Sodium (137 - 145 mmol/L) 141 Potassium (3.5 - 5.1 mmol/L) 4.1 Chloride (98 - 107 mmol/L) 105 Carbon Dioxide (22 - 30 mmol/L) 26 Anion Gap (5 - 16) 10 BUN (9 - 20 mg/dL) 14 Creatinine (0.7 - 1.2 mg/dL) 0.9 Estimated GFR (>60 ml/min) > 60 BUN/Creatinine Ratio (7 - 25 %) 15.6 Glucose (65 - 99 mg/dL) 114 H Calcium (8.4 - 10.2 mg/dL) 8.3 L Magnesium (1.6 - 2.3 mg/dL) 2.1 Albumin (3.5 - 5.0 g/dL) 3.4 L 25-OH Vitamin D Total (30 - 100 ng/ml) 20.9 L PTH Intact (13.8 - 85 pg/ml) 56.1 Hematology CBC w Diff NO MAN DIFF REQ WBC (4.8 - 10.8 /CUMM) 4.4 L RBC (4.70 - 6.10 /CUMM) 5.19 Hgb (14.0 - 18.0 G/DL) 14.9 Hct (42 - 52 %) 44.5 MCV (80.0 - 94.0 FL) 85.7 MCH (27.0 - 31.0 PG) 28.8 RDW (11.5 - 14.5 %) 14.8 H Plt Count (130 - 400 /CUMM) 130 MPV (7.4 - 10.4 FL) 8.0 Gran % (42.2 - 75.2 %) 69.8 Lymphocytes % (20.5 - 51.1 %) 19.8 L Monocytes % (1.7 - 9.3 %) 8.0 Eosinophils % (0 - 5 %) 1.9 Basophils % (0.0 - 2.0 %) 0.5 Absolute Granulocytes (1.4 - 6.5 /CUMM) 3.1 Absolute Lymphocytes (1.2 - 3.4 /CUMM) 0.9 L Absolute Monocytes (0.10 - 0.60 /CUMM) 0.4 Absolute Eosinophils (0.0 - 0.7 /CUMM) 0.1 Absolute Basophils (0.0 - 0.2 /CUMM) 0 PUBS MCHC (33.0 - 37.0 G/DL) 33.6
[2016-10-17] MEDS ORDERED: LABETALOL HCL300 M1 PO (11:32)
[2016-10-17 13:23] VITALS: BP 146/96
--- NOTE | 2016-10-17 13:55 | PN- Medicine Consult ---
Assessment/Plan Assessment/Plan Assessment: 46M PMH lymphoma 20 years ago status post radiation and chemotherapy, recent admission at [facility] with hypertensive urgency, recently diagnosed thyroid nodules most likely malignant in nature status post complete thyroidectomy. Medicine consulted for hypertensive urgency and headache. BP improved following starting home Labetalol, still not yet at goal. Patient reports frontal headache but is otherwise well. Plan: - Management by surgery - Will start Amodipine 2.5mg daily - Increase Labetalol to 300mg BID - Follow endocrine recommendations for Synthroid and calcium management - Will follow with you Subjective Subjective: No complaints, looks and feels well, headache has resolved, no neck pain, no symptoms of hyper or hypothyroidism Review of Systems Constitutional: Reports: no symptoms. EENTM: Reports: no symptoms. Cardiovascular: Reports: no symptoms. Respiratory: Reports: no symptoms. Gastrointestinal: Reports: no symptoms. Genitourinary: Reports: no symptoms. Musculoskeletal: Reports: no symptoms. Skin: Reports: no symptoms. Neurological/Psychological: Reports: no symptoms. Hematologic/Endocrine: Reports: no symptoms. Immunologic/Allergic: Reports: no symptoms. Objective Last 24 Hrs of Vital Signs/I&O Vital Signs Date Time Temp Pulse Resp B/P B/P Pulse O2 O2 Flow FiO2 Mean Ox Delivery Rate 10/17 1323 77 146/96 10/17 1205 80 172/100 10/17 1121 77 172/100 10/17 0922 76 170/98 / 0759 98.1 76 14 170/100 96 Room Air / 0756 102 174/102 / 0756 82 174/102 / 2200 98.4 68 16 124/78 97 Room Air 10/16 2153 68 124/78 05/ 1530 98.3 75 16 118/68 94 Room Air 10/16 1416 71 178/100 Intake & Output 10/17 1600 10/17 0800 05/ 0000 Intake Total 100 500 Output Total 5 10 Balance 95 490 Intake, IV 0 0 Intake, Oral 100 500 Number 0 0 Bowel Movements Output, 5 10 Drainage Physical Exam General Appearance: well developed/nourished, no apparent distress, alert, awake Head: normal appearance Ears, Nose, Throat: normal ENT inspection Neck: normal inspection Cardiovascular: regular rate/rhythm Respiratory: normal breath sounds Abdomen: soft Extremities: normal inspection Neurologic/Psychiatric: no motor/sensory deficits Current Medications: Current Medications Sig/Morales Start time Last Medication Dose Route Stop Time Status Admin Amlodipine Besylate 5 MG .STK-MED ONE 10/16 1411 DC PO 10/16 1412 Amlodipine Besylate 2.5 MG DAILY 10/16 1257 AC 10/17 PO 0756 Aspirin 81 MG DAILY 10/16 1000 AC 10/17 PO 0923 Calcitriol 0.25 MCG DAILY 10/16 1145 AC 10/17 PO 0923 Calcium 600 MG BID 10/16 1146 AC 10/17 PO 0923 Heparin Sodium 5,000 UNIT Q8 10/15 2200 AC 10/17 (Porcine) SC 0645 Ketorolac 30 MG Q6-PRN PRN 10/16 0745 AC 10/16 Tromethamine IV 2158 Labetalol HCl 100 MG ONCE ONE 10/17 1145 DC 10/17 PO 10/17 1146 1205 Labetalol HCl 200 MG BID 10/16 1000 AC 10/17 PO 0756 Levothyroxine Sodium 0.2 MG DAILY AC 10/16 1147 AC 10/17 PO 0645 Morphine Sulfate 2 MG Q1P PRN 10/15 1845 AC IV Omeprazole 40 MG DAILY AC 10/16 0700 AC 10/17 PO 0645 Ondansetron HCl 4 MG Q6P PRN 10/15 1845 AC IV Oxycodone/ 1 TAB Q4P PRN 10/15 1845 AC 10/16 Acetaminophen PO 0400 Oxycodone/ 2 TAB Q4P PRN 10/15 1845 AC Acetaminophen PO Results Last 24 Hrs Lab/Darrell Results: Laboratory Tests 10/17/16 0754: Anion Gap 10, Estimated GFR > 60, BUN/Creatinine Ratio 15.6, Glucose 114 H, Calcium 8.3 L, Magnesium 2.1, Albumin 3.4 L, 25-OH Vitamin D Total 20.9 L, PTH Intact 56.1, CBC w Diff NO MAN DIFF REQ, RBC 5.19, MCV 85.7, MCH 28.8, RDW 14.8 H, MPV 8.0, Gran % 69.8, Lymphocytes % 19.8 L, Monocytes % 8.0, Eosinophils % 1.9, Basophils % 0.5, Absolute Granulocytes 3.1, Absolute Lymphocytes 0.9 L, Absolute Monocytes 0.4, Absolute Eosinophils 0.1, Absolute Basophils 0, PUBS MCHC 33.6
== END 2016-10-17 14:10 ==
LOC: STS 01:43 → SDA 07:00 → EDSTATUS 07:00 → PACUH 09:03 → ENRESERV 13:01 → 2NB 16:01 → 1NO 20:09 → ENPENDDIS 10-17 13:46 → 1NO 10-17 14:10
PROVIDERS: Nurse Practitioner; Physician Assistant; ADMIT Surgery
DX: C73 Malignant neoplasm of thyroid gland (principal); C79.89 Secondary malignant neoplasm of other specified sites; E04.2 Nontoxic multinodular goiter; E83.51 Hypocalcemia; Z85.72 Personal history of non-Hodgkin lymphomas; R51 Headache; I10 Essential (primary) hypertension; E78.5 Hyperlipidemia, unspecified; K21.9 Gastro-esophageal reflux disease without esophagitis
CPT/HCPCS: 36415; 82436; 87086; 88307; 96372; G0378; J0131; J0690; J1644; J1885; J2405; J3490; J7042